=== PATIENT | male | born 1990 | race Caucasian/White ===

== ENCOUNTER 2017-04-09 18:59 | Emergency (ER) | payer MEDICAID, OTHER ==
[2017-04-09 19:06] VITALS: BP 140/90
[2017-04-09] MEDS ORDERED: TETANUS/DIPHTHERIA/PERTUSSIS 0.5 ML SYRINGE IM ONE ×2 (19:15→19:29)
[2017-04-09] MEDS ORDERED: BUFFERED LIDOCAINE 10 ML SYRINGE ONE (19:16)
--- NOTE | 2017-04-09 19:17 | ED Physician Documentation ---
PD HPI UPPER EXT INJURY - Stated complaint Stated Complaint: RT THUMB LAC - Chief complaint Chief Complaint: Laceration - History obtained from History obtained from: Patient - History of Present Illness Location: Other (He cut his right/dominant thumb 2 nights ago after work. He went to [facility] but the wait was too long and he was not seen. He has persistent pain from it and there is a piece of nail that is bothering the wound.) Review of Systems Constitutional: reports: Reviewed and negative Cardiac: reports: Reviewed and negative Respiratory: reports: Reviewed and negative PD PAST MEDICAL HISTORY - Past Medical History Past Medical History: Yes Psych: ADD/ADHD Musculoskeletal: Chronic back pain - Past Surgical History Past Surgical History: Yes HEENT: Tonsil/Adenoidectomy - Present Medications Home Medications: Ambulatory Orders Medication Instructions Recorded Confirmed buPROPion [Wellbutrin Xl] 150 mg PO DAILY 04/09/17 04/09/17 - Allergies Allergies/Adverse Reactions: Allergies Allergy/AdvReac Type Severity Reaction Status Date / Time nickel Allergy Rash Verified 04/09/17 19:05 zinc Allergy Rash Verified 04/09/17 19:05 - Social History Does the pt smoke?: Yes Smoking Status: Current every day smoker Does the pt drink ETOH?: No Does the pt have substance abuse?: Yes - Immunizations Immunizations are current?: No - POLST Patient has POLST: No PD ED PE NORMAL - Vitals Vital signs reviewed: Yes - General General: Alert and oriented X 3, No acute distress - Extremities Extremities: Other (On the tip of the right thumb, the ulnar side there is a 1/ 2 cm laceration that goes just through the ulnar side of the nailbed and there is a little sliver of the nail on the ulnar side that needs to be removed. The laceration is actually healing well and there is no evidence of infection.) - Neuro Neuro: Alert and oriented X 3, Normal speech - Psych Psych: Normal mood, Normal affect Results - Vitals Vitals: Vital Signs - 24 hr 04/09/17 19:02 Temperature 36.0 C L Heart Rate 99 Respiratory 16 Rate Blood Pressure 140/90 H O2 Saturation 98 Oxygen O2 Source Room air PD MEDICAL DECISION MAKING - ED course ED course: The laceration is healing well and is too old to close primarily. A digital block was done and the sliver of nail was removed and it was irrigated and he was dressed with Xeroform and tube gauze. Departure - Departure Disposition: 01 Home, Self Care Clinical Impression: Laceration Condition: Good Record reviewed to determine appropriate education?: Yes Instructions: ED Laceration Old Not Sutr Comments: Leave the current dressing on for 2 days, then you can take it off and wash it briefly with soap and water and keep a Band-Aid over it. Return if worse or if he develop signs of infection, especially redness, swelling, drainage, increased pain, fever. Your blood pressure was elevated today on check into the emergency department. This does not mean that you have hypertension, it is a common phenomenon to come to the emergency department and have elevated blood pressure. I recommend that you see your primary care physician within the week to have it rechecked when you are feeling better.
== END 2017-04-09 19:36 | disposition home or self-care (01) ==
LOC: ED 18:59
DX: S61.011A Laceration without foreign body of right thumb without damage to nail, initial encounter (principal); F17.200 Nicotine dependence, unspecified, uncomplicated; W26.0XXA Contact with knife, initial encounter; Y99.0 Civilian activity done for income or pay; R03.0 Elevated blood-pressure reading, without diagnosis of hypertension; Z23 Encounter for immunization
CPT/HCPCS: 64450; 90471; 99283

== ENCOUNTER 2017-08-14 21:58 | Emergency (ER) | payer MEDICAID, OTHER ==
--- NOTE | 2017-08-14 22:35 | ED Physician Documentation ---
PD HPI CHEST PAIN - Stated complaint Stated Complaint: R SIDE PAIN - Chief complaint Chief Complaint: Ext Problem - History obtained from History obtained from: Patient - History of Present Illness Timing - onset: How many days ago (2) Timing - details: Abrupt onset Pain level max: 10 Pain level now: 9 Quality: Pain Location: Right chest Radiation: Other (no radiation) Improved by: Rest Worsened by: Inspiration, Movement Associated symptoms: No: Shortness of air, Diaphoresis, Feeling faint / dizzy, Palpitations, Cough Similar symptoms before: Has not had sx before Recently seen: Not recently seen - Additional information Additional information: fell off a ladder 2 days ago, landed on right chest wall and has had increasing right anterior chest wall pain since then. Review of Systems Cardiac: reports: Chest pain / pressure Respiratory: denies: Dyspnea, Cough GI: denies: Abdominal Pain, Nausea, Vomiting Musculoskeletal: denies: Neck pain, Back pain PD PAST MEDICAL HISTORY - Past Medical History Past Medical History: Yes Endocrine/Autoimmune: None Psych: ADD/ADHD Musculoskeletal: Chronic back pain - Past Surgical History Past Surgical History: Yes HEENT: Tonsil/Adenoidectomy - Present Medications Home Medications: Ambulatory Orders Medication Instructions Recorded Confirmed No Known Home Medications [No 08/14/17 08/14/17 Known Home Medications] - Allergies Allergies/Adverse Reactions: Allergies Allergy/AdvReac Type Severity Reaction Status Date / Time nickel Allergy Rash Verified 08/14/17 22:10 zinc Allergy Rash Verified 08/14/17 22:10 - Social History Does the pt smoke?: Yes Smoking Status: Current every day smoker Does the pt drink ETOH?: No Does the pt have substance abuse?: Yes Substance Use and Type: Marijuana - Immunizations Immunizations are current?: Yes - POLST Patient has POLST: No PD ED PE NORMAL - Vitals Vital signs reviewed: Yes - General General: Alert and oriented X 3, No acute distress, Well developed/nourished - Cardiac Cardiac: RRR, No murmur - Respiratory Respiratory: No respiratory distress, Clear bilaterally - Abdomen Abdomen: Soft, Non tender - Free text exam Free text exam: right chest wall is TTP in region of 3rd-4th ribspace midclavicular line Results - Vitals Vitals: Oxygen O2 Source Room air - Rads (name of study) chest xray Radiology: Prelim report reviewed, See rad report PD MEDICAL DECISION MAKING - ED course Complexity details: reviewed results, re-evaluated patient, considered differential, d/w patient Departure - Departure Disposition: Home, Self Care Clinical Impression: Chest wall contusion Condition: Good Instructions: ED Contusion Chest Wall Discharge Date/Time: 08/14/17 23:34
--- NOTE | 2017-08-14 22:55 | XRAY Report ---
EXAM: CHEST RADIOGRAPHY EXAM DATE: 08/14/2017 10:49 PM. CLINICAL HISTORY: Right chest wall pain after fall. COMPARISON: 05/10/2014. TECHNIQUE: 2 views. FINDINGS: Lungs/Pleura: No alveolar consolidation or pleural effusion. No pneumothorax. Mediastinum: Heart and mediastinal contours are unremarkable. Other: None. IMPRESSION: No acute abnormality seen in the chest. [facility] Referring Provider Line: [phone] SITE ID: [id number]
--- NOTE | 2017-08-14 22:55 | XRAY Preliminary Report ---
Exam: XR CHEST 2 VIEW X-RAY IMPRESSION: No acute abnormality seen in the chest. [facility] SITE ID: [id number]
[2017-08-14 23:18] VITALS: BP 118/64
== END 2017-08-14 23:34 | disposition home or self-care (01) ==
LOC: ED 21:58
DX: S20.211A Contusion of right front wall of thorax, initial encounter (principal); W11.XXXA Fall on and from ladder, initial encounter; F17.200 Nicotine dependence, unspecified, uncomplicated
CPT/HCPCS: 71046; 99283

== ENCOUNTER 2017-09-06 13:06 | Emergency (ER) | payer MEDICAID, OTHER ==
[2017-09-06 13:43] VITALS: BP 130/78
== END 2017-09-06 16:15 | disposition left against medical advice (07) ==
LOC: ED 13:06
DX: Z53.21 Procedure and treatment not carried out due to patient leaving prior to being seen by health care provider (principal)
CPT/HCPCS: 81001; 81003; 87086; 87491; 87591; 99281

== ENCOUNTER 2017-12-08 14:11 | Emergency (ER) | payer MEDICAID ==
[2017-12-08 14:22] VITALS: BP 141/70
[2017-12-08] MEDS ORDERED: IBUPROFEN 800 MG TABLET PO STA (15:23)
--- NOTE | 2017-12-08 15:23 | ED Physician Documentation ---
History of Present Illness - Stated complaint Stated Complaint: LEFT LEG SWELLING - Chief complaint Chief Complaint: General - History obtained from History obtained from: Patient - History of Present Illness Timing: Yesterday Pain level max: 4 Pain level now: 3 Quality: back pain, walking Improved by: rest Worsened by: walking - Additonal information Additional information: Patient is a 27-year-old male who was sleeping in his car with his legs out of the window, hung over the door when he noticed a sunburn to the left marrero yesterday. States that the leg seems more swollen today. No pain. He also complains of low back pain for the past 6 months. Has not taken anything for this at home. No focal weakness or numbness. No tingling. No loss of bowel or bladder control. No fevers. No IV drug use Review of Systems Constitutional: denies: Fever, Chills Ears: denies: Ear pain Nose: denies: Rhinorrhea / runny nose, Congestion Throat: denies: Sore throat Respiratory: denies: Cough GI: denies: Nausea, Vomiting, Diarrhea Musculoskeletal: denies: Neck pain Neurologic: denies: Focal weakness, Numbness PD PAST MEDICAL HISTORY - Past Medical History Past Medical History: Yes Endocrine/Autoimmune: None Psych: ADD/ADHD Musculoskeletal: Chronic back pain - Past Surgical History Past Surgical History: Yes HEENT: Tonsil/Adenoidectomy - Present Medications Home Medications: Ambulatory Orders Medication Instructions Recorded Confirmed Ibuprofen [Motrin] 800 mg PO Q8H PRN #30 tablet 12/08/17 - Allergies Allergies/Adverse Reactions: Allergies Allergy/AdvReac Type Severity Reaction Status Date / Time nickel Allergy Rash Verified 12/08/17 14:22 zinc Allergy Rash Verified 12/08/17 14:22 - Social History Does the pt smoke?: Yes Smoking Status: Current every day smoker Does the pt drink ETOH?: No Does the pt have substance abuse?: Yes - Immunizations Immunizations are current?: Yes - POLST Patient has POLST: No PD ED PE NORMAL - Vitals Vital signs reviewed: Yes - General General: Alert and oriented X 3, No acute distress - HEENT HEENT: Moist mucous membranes - Neck Neck: Supple, no meningeal sign - Cardiac Cardiac: RRR, Strong equal pulses - Respiratory Respiratory: No respiratory distress, Clear bilaterally - Abdomen Abdomen: Soft, Non tender - Back Back: No spinal TTP, Other (No midline tenderness to palpation or percussion. No spasm.) - Derm Derm: Warm and dry - Extremities Extremities: No deformity, Other (normal bilateral lower extremity patellar and ankle jerk reflexes. Normal great toe extension bilaterally. Mild first-degree sunburn to the anterior aspect of the left marrero. No calf tenderness. No cord. Minimal edema) - Neuro Neuro: Alert and oriented X 3, No motor deficit, No sensory deficit, Other ( Normal gait) - Psych Psych: Normal mood, Normal affect Results - Vitals Vitals: Vital Signs - 24 hr 12/08/17 14:16 Temperature 36.8 C Heart Rate 78 Respiratory 18 Rate Blood Pressure 141/70 H O2 Saturation 97 Oxygen O2 Source Room air PD MEDICAL DECISION MAKING - ED course Complexity details: reviewed old records, considered differential (no cauda equina, no spinal epidural abscess, no fracture, no aortic dissection or evidence of aneursym rupture), d/w patient ED course: Patient is a 27-year-old male with a sunburn to the left lower extremity. No cellulitis. No evidence of DVT. No calf tenderness. Also has chronic low back pain and will prescribe Motrin for this. No neurological deficits. No cauda equina, epidural abscess. No new injury. Patient counseled regarding signs and symptoms for which I believe and urgent re-evaluation would be necessary. Patient with good understanding of and agreement to plan and is comfortable going home at this time This document was made in part using voice recognition software. While efforts are made to proofread this document, sound alike and grammatical errors may occur. - Sepsis Event Vital Signs: Vital Signs - 24 hr 12/08/17 14:16 Temperature 36.8 C Heart Rate 78 Respiratory 18 Rate Blood Pressure 141/70 H O2 Saturation 97 Oxygen O2 Source Room air Departure - Departure Disposition: Home, Self Care Clinical Impression: Sunburn Back pain Qualifiers: Back pain location: low back pain Chronicity: chronic Back pain laterality: bilateral Sciatica presence: without sciatica Qualified Code(s): M54.5 - Low back pain Condition: Good Instructions: ED Neck Back Pain General, ED Burn Sunburn Follow-Up: [facility] [Provider Group] [facility] [Provider Group] Prescriptions: Ibuprofen [Motrin] 800 mg PO Q8H PRN #30 tablet PRN Reason: PAIN &/OR FEVER Comments: Return if you worsen. This should improve over the next few days. Discharge Date/Time: 12/08/17 15:35
== END 2017-12-08 15:35 | disposition home or self-care (01) ==
LOC: ED 14:11
DX: L55.9 Sunburn, unspecified (principal); M54.5 Low back pain; G89.29 Other chronic pain; F17.200 Nicotine dependence, unspecified, uncomplicated
CPT/HCPCS: 99283; A9270

== ENCOUNTER 2018-02-23 01:15 | Emergency (ER) | payer MEDICAID ==
[2018-02-23 01:34] VITALS: BP 133/60
== END 2018-02-23 03:03 | disposition left against medical advice (07) ==
LOC: ED 01:15
DX: Z53.21 Procedure and treatment not carried out due to patient leaving prior to being seen by health care provider (principal)

== ENCOUNTER 2018-06-29 18:53 | Emergency (ER) | payer MEDICAID ==
--- NOTE | 2018-06-29 20:42 | ED Physician Documentation ---
PD HPI HEENT - Stated complaint Stated Complaint: FINGER LAC - Chief complaint Chief Complaint: General - History obtained from History obtained from: Patient - History of Present Illness Timing - onset: How many weeks ago (1) Timing - duration: Weeks (1) Timing - details: Gradual onset, Still present Location: Tooth Worsens: Temperatures Associated symptoms: Congestion Similar symptoms before: Diagnosis (broken tooth) Recently seen: Not recently seen - Additional information Additional information: 27-year-old homeless male has some lacerations to his fingertips which are old and appear to be healing he is wanting to get them cleaned. In addition he has a broken tooth on the right side that is giving him some problem with pain it is especially sensitive to cold and heat. The tooth is broken. Review of Systems Constitutional: denies: Fever Eyes: denies: Decreased vision Ears: denies: Ear pain Nose: reports: Congestion. denies: Rhinorrhea / runny nose Throat: reports: Dental pain / toothache. denies: Sore throat Respiratory: denies: Dyspnea, Cough GI: denies: Vomiting Skin: reports: Laceration (s) Musculoskeletal: denies: Neck pain, Back pain, Extremity pain Neurologic: denies: Generalized weakness, Focal weakness, Numbness PD PAST MEDICAL HISTORY - Past Medical History Past Medical History: Yes Cardiovascular: None Respiratory: None Neuro: None Endocrine/Autoimmune: None GI: None : None HEENT: None Psych: ADD/ADHD, Other Musculoskeletal: Chronic back pain Derm: None Other Past Medical History: ANGER ISSUE... - Past Surgical History Past Surgical History: Yes HEENT: Tonsil/Adenoidectomy - Present Medications Home Medications: Ambulatory Orders Medication Instructions Recorded Confirmed Ibuprofen [Motrin] 800 mg PO Q8H PRN #30 tablet 12/08/17 RX: Amoxicillin 875 mg PO BID #14 tablet 06/29/18 - Allergies Allergies/Adverse Reactions: Allergies Allergy/AdvReac Type Severity Reaction Status Date / Time nickel Allergy Rash Verified 06/29/18 19:25 zinc Allergy Rash Verified 06/29/18 19:25 - Social History Does the pt smoke?: Yes Smoking Status: Current every day smoker Does the pt drink ETOH?: No Does the pt have substance abuse?: Yes - Immunizations Immunizations are current?: No - POLST Patient has POLST: No PD ED PE NORMAL - Vitals Vital signs reviewed: Yes (hypertensive ) - General General: Alert and oriented X 3, No acute distress, Well developed/nourished - HEENT HEENT: Atraumatic, PERRL, EOMI, Other (There is a broken tooth on the right lower 2nd to the last molar on the buccal side. This is filled with CAVIT) - Neck Neck: Supple, no meningeal sign, No bony TTP - Cardiac Cardiac: RRR, No murmur - Respiratory Respiratory: No respiratory distress, Clear bilaterally - Back Back: No CVA TTP, No spinal TTP - Derm Derm: Normal color, Warm and dry, No rash - Extremities Extremities: No deformity, No edema, Other (There are healing superficial lacerations to the thumbs and index fingers and these are cleaned by the tech) - Neuro Neuro: Alert and oriented X 3, data processing equipment repairer 2-12 intact, No motor deficit, No sensory deficit, Normal speech Eye Opening: Spontaneous Motor: Obeys Commands Verbal: Oriented GCS Score: 15 - Psych Psych: Normal mood, Normal affect Results - Vitals Vitals: Vital Signs - 24 hr 06/29/18 06/29/18 06/29/18 19:21 20:55 20:56 Temperature 36.4 C L Heart Rate 95 95 Respiratory 16 18 17 Rate Blood Pressure 139/78 H 140/76 H O2 Saturation 99 98 06/29/18 21:00 Temperature Heart Rate Respiratory 17 Rate Blood Pressure O2 Saturation Oxygen O2 Source Room air PD MEDICAL DECISION MAKING - ED course Complexity details: considered differential, d/w patient ED course: Pleasant 27-year-old homeless male is grateful for care given. His tooth appears broken he is placed on amoxicillin and It is placed over the open area. His wounds are cleaned. Departure - Departure Disposition: 01 Home, Self Care Clinical Impression: Dental decay, Finger laceration Condition: Stable Instructions: ED Tooth Pain, ED Laceration Old Not Sutr Follow-Up: [facility] [Provider Group] Prescriptions: RX: Amoxicillin 875 mg PO BID #14 tablet Discharge Date/Time: 06/29/18 21:00
[2018-06-29 20:56] VITALS: BP 140/76
[2018-06-29] MEDS ORDERED: AMOXICILLIN 250 MG Prepack 6 PO SCH (22:00)
== END 2018-06-29 21:00 | disposition home or self-care (01) ==
LOC: ED 18:53
DX: S02.5XXA Fracture of tooth (traumatic), initial encounter for closed fracture (principal); K02.9 Dental caries, unspecified; S61.012A Laceration without foreign body of left thumb without damage to nail, initial encounter; S61.011A Laceration without foreign body of right thumb without damage to nail, initial encounter; S61.211A Laceration without foreign body of left index finger without damage to nail, initial encounter; S61.210A Laceration without foreign body of right index finger without damage to nail, initial encounter; X58.XXXA Exposure to other specified factors, initial encounter; R09.81 Nasal congestion; F17.200 Nicotine dependence, unspecified, uncomplicated; Z59.0 Homelessness
CPT/HCPCS: 99283

== ENCOUNTER 2018-07-23 20:45 | Emergency (ER) | payer MEDICAID ==
[2018-07-23] MEDS ORDERED: CETIRIZINE 10 MG TABLET PO STA (21:09)
[2018-07-23] MEDS ORDERED: BENZONATATE 100 MG CAPSULE PO STA (21:09)
[2018-07-23] MEDS ORDERED: ALBUTEROL NEB 2.5 MG/3 ML INH STA (21:09)
[2018-07-23] MEDS ORDERED: PSEUDOEPHEDRINE 30 MG TABLET PO STA (21:09)
--- NOTE | 2018-07-23 21:15 | ED Physician Documentation ---
PD HPI URI - Stated complaint Stated Complaint: SOA - Chief complaint Chief Complaint: Resp - History obtained from History obtained from: Patient - History of Present Illness Timing - onset: How many weeks ago (2) Timing duration: Weeks (2) Timing details: Abrupt onset Pain level max: 0 Pain level now: 0 Associated symptoms: Fever, Chills, Nasal congestion, Rhinorrhea, Dry cough, Dyspnea. No: Chest pain Contributing factors: Sick contact. No: Immunocompromised, Unimmunized Improves by: Rest Worsened by: Activity, Breathing Recently seen: Not recently seen Review of Systems Constitutional: reports: Fever, Chills Nose: reports: Rhinorrhea / runny nose, Congestion Respiratory: reports: Dyspnea, Cough, Wheezing GI: denies: Abdominal Pain, Nausea, Vomiting, Diarrhea Skin: denies: Rash Musculoskeletal: denies: Neck pain, Back pain Neurologic: denies: Headache PD PAST MEDICAL HISTORY - Past Medical History Cardiovascular: None Respiratory: None Neuro: None Endocrine/Autoimmune: None GI: None : None HEENT: None Psych: ADD/ADHD, Other Musculoskeletal: Chronic back pain Derm: None - Past Surgical History Past Surgical History: Yes HEENT: Tonsil/Adenoidectomy - Present Medications Home Medications: Ambulatory Orders Medication Instructions Recorded Confirmed Ibuprofen [Motrin] 800 mg PO Q8H PRN #30 tablet 12/08/17 Amoxicillin 875 mg PO BID #14 tablet 06/29/18 Albuterol Sulf [Ventolin Hfa 1 - 2 puffs INH Q4HR PRN #1 inhaler 07/23/18 Inhaler] Benzonatate [Tessalon Perle] 100 - 200 mg PO TID PRN #30 capsule 07/23/18 Cetirizine HCl/Pseudoephedrine 1 each PO BID PRN #30 tab.er.12h 07/23/18 [Zyrtec-D Tablet] - Allergies Allergies/Adverse Reactions: Allergies Allergy/AdvReac Type Severity Reaction Status Date / Time nickel Allergy Rash Verified 07/23/18 20:51 zinc Allergy Rash Verified 07/23/18 20:51 - Social History Does the pt smoke?: Yes Smoking Status: Current every day smoker Does the pt drink ETOH?: No Does the pt have substance abuse?: Yes Substance Use and Type: Marijuana - Immunizations Immunizations are current?: No - POLST Patient has POLST: No PD ED PE NORMAL - Vitals Vital signs reviewed: Yes - General General: Alert and oriented X 3, No acute distress - HEENT HEENT: Moist mucous membranes - Neck Neck: Supple, no meningeal sign - Cardiac Cardiac: RRR, No murmur, Strong equal pulses - Respiratory Respiratory: No respiratory distress, Other (Mild wheezing bilaterally) - Abdomen Abdomen: Soft, Non tender, Non distended - Derm Derm: No rash - Extremities Extremities: No edema - Neuro Neuro: Alert and oriented X 3 - Psych Psych: Normal mood, Normal affect Results - Vitals Vitals: Vital Signs - 24 hr 07/23/18 07/23/18 07/23/18 20:48 21:02 22:02 Temperature 36.2 C L 36.1 C L Heart Rate 97 84 Respiratory 18 18 12 Rate Blood Pressure 124/78 123/55 L O2 Saturation 98 93 07/23/18 22:06 Temperature Heart Rate 89 Respiratory 18 Rate Blood Pressure 134/64 H O2 Saturation 97 Oxygen O2 Source Room air - Labs Labs: Laboratory Tests 07/23/18 21:11 Influenza A (Rapid) Negative Influenza B (Rapid) Negative - Rads (name of study) cxr Radiology: Prelim report reviewed, EMP read contemporaneously, See rad report (No acute disease) PD MEDICAL DECISION MAKING - ED course Complexity details: reviewed results, re-evaluated patient, considered differential, d/w patient ED course: 27-year-old male with what appears to be a viral upper respiratory infection. Negative influenza. Negative chest x-ray. Feels better after medication and albuterol. Will continue supportive care and follow-up with his doctor. Patient counseled regarding signs and symptoms for which I believe and urgent re-evaluation would be necessary. Patient with good understanding of and agreement to plan and is comfortable going home at this time This document was made in part using voice recognition software. While efforts are made to proofread this document, sound alike and grammatical errors may occur. Departure - Departure Disposition: 01 Home, Self Care Clinical Impression: Viral URI Condition: Good Instructions: ED URI Viral Follow-Up: your,doctor in 1 week [Other] Prescriptions: Albuterol Sulf [Ventolin Hfa Inhaler] 1 - 2 puffs INH Q4HR PRN #1 inhaler PRN Reason: Shortness Of Air/Wheezing Benzonatate [Tessalon Perle] 100 - 200 mg PO TID PRN #30 capsule PRN Reason: Cough Cetirizine HCl/Pseudoephedrine [Zyrtec-D Tablet] 1 each PO BID PRN #30 tab.er.12h PRN Reason: nasal congestion Comments: Your flu swab is negative and your chest x-ray is clear. We will prescribe you decongestants and cough medication for home. Return if you worsen Discharge Date/Time: 07/23/18 22:13
--- NOTE | 2018-07-23 21:55 | XRAY Report ---
Reason: cough Procedure Date: 07/23/2018 Accession Number: [id number] / [id number] Procedure: XR - Chest 2 View X-Ray CPT Code: 23420 FULL RESULT: EXAM: CHEST RADIOGRAPHY EXAM DATE: 07/23/2018 09:29 PM. CLINICAL HISTORY: Cough. COMPARISON: CHEST 2 VIEW 08/14/2017 10:37 PM. TECHNIQUE: 2 views. FINDINGS: Lungs/Pleura: No focal opacities evident. No pleural effusion. No pneumothorax. Normal volumes. Mediastinum: Heart and mediastinal contours are unremarkable. Other: None. IMPRESSION: Normal 2-view chest radiography. [facility]
[2018-07-23 22:07] VITALS: BP 134/64
== END 2018-07-23 22:13 | disposition home or self-care (01) ==
LOC: ED 20:45
DX: J06.9 Acute upper respiratory infection, unspecified (principal); B97.89 Other viral agents as the cause of diseases classified elsewhere
CPT/HCPCS: 71046; 87275; 87276; 94640; 94664; 99283; A9270

== ENCOUNTER 2018-11-18 00:42 | Outpatient (CLI) | payer MEDICAID | END 2018-11-18 00:43 | disposition critical access hospital (66) | LOC: EMS 00:42 | PROVIDERS: ATTEND Surgery | DX: R51 Headache (principal); M54.2 Cervicalgia; M79.603 Pain in arm, unspecified; M79.606 Pain in leg, unspecified; Y09 Assault by unspecified means | CPT/HCPCS: A0425; A0429 ==

== ENCOUNTER 2018-11-18 00:57 | Emergency (ER) | payer OTHER, MEDICAID ==
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
[2018-11-18 01:15] VITALS: BP 120/71
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
== END 2018-11-18 02:19 | disposition home or self-care (01) ==
LOC: EDUNIT# → ED 00:57
DX: S09.90XA Unspecified injury of head, initial encounter (principal); S00.31XA Abrasion of nose, initial encounter; S00.531A Contusion of lip, initial encounter; Y04.2XXA Assault by strike against or bumped into by another person, initial encounter; F90.9 Attention-deficit hyperactivity disorder, unspecified type; F17.200 Nicotine dependence, unspecified, uncomplicated
CPT/HCPCS: 70450; 70486; 99282; 99283

== ENCOUNTER 2018-12-29 08:00 | Outpatient (CLI) | payer MEDICAID ==
[2018-12-29 11:09] LABS: MUDS CUTOFF CONCENTRATIONS CUTOFF CONC BELOW:
[2018-12-29 18:38] LABS: BASOPHILS % (AUTO) 0.3 %; EOSINOPHILS # (AUTO) 0.3 10^3/uL (0.0-0.7); EOSINOPHILS % (AUTO) 3.8 %; LYMPHOCYTES % (AUTO) 25.7 %; MEAN CORPUSCULAR HEMOGLOBIN 30.2 pg (27.0-31.0); MEAN CORPUSCULAR HGB CONC 31.3 g/dL (32.0-36.0); MEAN CORPUSCULAR VOLUME 96.5 fL (80.0-94.0); MEAN PLATELET VOLUME 11.3 fL (7.4-11.4); MONOCYTES # (AUTO) 0.5 10^3/uL (0.0-1.0); MONOCYTES % (AUTO) 5.9 %; NEUTROPHILS # (AUTO) 4.9 10^3/uL (1.5-6.6); NEUTROPHILS % (AUTO) 64.2 %; PLT - PLATELET COUNT 306 10^3/uL (130-450); RED BLOOD COUNT 4.63 10^6/uL (4.70-6.10); RED CELL DISTRIBUTION WIDTH 12.5 % (12.0-15.0); WHITE BLOOD COUNT 7.6 x10^3/uL (4.8-10.8)
[2018-12-29 18:53] LABS: AMPHETAMINE SCREEN,URINE POSITIVE (NEGATIVE); BENZODIAZEPINES SCREEN, URINE NEGATIVE (NEGATIVE); COCAINE SCREEN URINE NEGATIVE (NEGATIVE); METHADONE SCREEN, URINE NEGATIVE (NEGATIVE); METHAMPHETAMINES SCREEN, URINE POSITIVE (NEGATIVE); OPIATE SCREEN, URINE NEGATIVE (NEGATIVE); OXYCODONE SCREEN, URINE NEGATIVE (NEGATIVE); PROPOXYPHENE SCREEN, URINE NEGATIVE (NEGATIVE); TRICYCLIC ANTIDEPRESSANT,URINE NEGATIVE (NEGATIVE)
[2018-12-29 19:06] LABS: ALBUMIN 4.2 g/dL (3.2-5.5); ALBUMIN/GLOBULIN RATIO 1.4 (1.0-2.2); BILIRUBIN,TOTAL 0.5 mg/dL (0.2-1.0); CALCIUM 9.2 mg/dL (8.5-10.3); CREATININE 0.8 mg/dL (0.6-1.2); TOTAL PROTEIN 7.2 g/dL (6.7-8.2)
[2018-12-30 10:41] LABS: HIV AG/AB 4TH GEN NON-REACTIVE (NON-REACTIVE)
[2018-12-30 15:26] LABS: HEPATITIS C ANTIBODY NON-REACTIVE (NON-REACTIVE)
== END 2018-12-29 23:59 | disposition home or self-care (01) ==
LOC: LAB.WCP 08:00
PROVIDERS: ATTEND Family Medicine
DX: F31.9 Bipolar disorder, unspecified (principal); W46.0XXA Contact with hypodermic needle, initial encounter; Z87.898 Personal history of other specified conditions
CPT/HCPCS: 36415; 80053; 80306; 84443; 85025; 86803; 87389

== ENCOUNTER 2019-04-10 16:39 | Emergency (ER) | payer MEDICAID, OTHER ==
[2019-04-10 16:46] VITALS: BP 127/76
--- NOTE | 2019-04-10 17:04 | ED Physician Documentation ---
PD HPI LOWER EXT INJURY - Stated complaint Stated Complaint: RT BIG TOE - PREVIOUS INJURY FOLLOW UP - Chief complaint Chief Complaint: Ext Problem - History obtained from History obtained from: Patient - History of Present Illness PD HPI LOW EXT INJURY LOCATION: Right, Toe Type of injury: Blunt / blow (He states he kicked a normal drum that was rolling toward him 2 weeks ago and had pain in the right big toe with swelling and felt deformed. The swelling is gone down slowly and he has had increasing range of motion but is still feels stiff. He wants to ensure its healing okay. He had had a small abrasion on the dorsum of the toe which has not had any drainage nor increased redness.) Timing - onset: How many weeks ago (2) Worsened by: Moving, Palpating Associated symptoms: Swelling. No: Weakness, Numbness Review of Systems Neurologic: denies: Focal weakness, Numbness PD PAST MEDICAL HISTORY - Past Medical History Cardiovascular: None Respiratory: None Neuro: None Endocrine/Autoimmune: None GI: None : None HEENT: None Psych: ADD/ADHD, Other Musculoskeletal: Chronic back pain Derm: None - Past Surgical History Past Surgical History: Yes HEENT: Tonsil/Adenoidectomy - Present Medications Home Medications: Ambulatory Orders Medication Instructions Recorded Confirmed Ibuprofen 600 mg PO TID PRN #25 tablet 04/10/19 - Allergies Allergies/Adverse Reactions: Allergies Allergy/AdvReac Type Severity Reaction Status Date / Time nickel Allergy Rash Verified 11/18/18 01:14 zinc Allergy Rash Verified 11/18/18 01:14 - Social History Does the pt smoke?: Yes Smoking Status: Current every day smoker Does the pt drink ETOH?: No Does the pt have substance abuse?: Yes - Immunizations Immunizations are current?: No - POLST Patient has POLST: No PD ED PE NORMAL - Vitals Vital signs reviewed: Yes - General General: Alert and oriented X 3, No acute distress, Well developed/nourished - Derm Derm: Normal color, Warm and dry - Extremities Extremities: Other (right great toe with some residual bruising clearing still. Superficial redness/abrasion dorsum of base of toe in linear shape, presume related to prior tape at the area. No signs of infection to it. The IP joint is tender, with some swelling, but has good ROM flex and ext.) - Neuro Neuro: No motor deficit, No sensory deficit, Other (good color and cap refill in tip of toe. ) Results - Vitals Vitals: Vital Signs - 24 hr 04/10/19 16:42 Temperature 36.7 C Heart Rate 77 Respiratory 16 Rate Blood Pressure 127/76 O2 Saturation 100 Oxygen O2 Source Room air - Rads (name of study) righ great toe Radiology: Prelim report reviewed (satisfactory position of distal phalanx articular fracture. ), See rad report PD MEDICAL DECISION MAKING - ED course Complexity details: considered differential (recent fracture 2 weeks ago, with good ROM and sensation, though mill tender warm up. Appears healing okya. Encouraged to f/u ortho. ), d/w patient Departure - Departure Disposition: 01 Home, Self Care Clinical Impression: Fracture of great toe Qualifiers: Encounter type: initial encounter Fracture type: closed Phalanx: distal Fracture alignment: nondisplaced Laterality: right Qualified Code(s): S92.424A - Nondisplaced fracture of distal phalanx of right great toe, initial encounter for closed fracture Condition: Stable Record reviewed to determine appropriate education?: Yes Instructions: ED Fx Toe Closed Follow-Up: [facility] [Provider Group] Prescriptions: Ibuprofen 600 mg PO TID PRN #25 tablet PRN Reason: Pain Comments: Your x-ray shows a healing fracture of the great toe. It does appear in stable position. I would anticipate continued improvement as the swelling goes down even further. Anti-inflammatories such as ibuprofen 3 times a day. Add Tylenol if needed for pains. Use the firm soled shoe to help reduce movement at the joint and that should help the swelling as well. Follow-up with orthopedics in a week or 2 to ensure still healing well., Call for an appointment. Discharge Date/Time: 04/10/19 17:46
--- NOTE | 2019-04-10 17:30 | XRAY Report ---
Reason: R Procedure Date: 04/10/2019 Accession Number: [id number] / [id number] Procedure: XR - Toe(s) RT CPT Code: FULL RESULT: EXAM: RIGHT TOE RADIOGRAPHY EXAM DATE: 04/10/2019 05:14 PM. CLINICAL HISTORY: Prior fracture with increasing pain and swelling COMPARISON: O XR FOOT 3+ VIEW COMPLETE RIGHT 03/23/2019 9:00 PM. TECHNIQUE: 3 views. FINDINGS: Bones: Unchanged appearance and alignment of the minimally displaced intra-articular fracture of the base of the first distal phalanx. No other fracture lines are seen. Joints: No subluxations. Soft Tissues: Soft tissue swelling of the first digit. IMPRESSION: 1. Stable appearance and alignment of the intra-articular fracture of the base of the first distal phalanx with surrounding soft tissue swelling. RADIA
[2019-04-10] MEDS ORDERED: IBUPROFEN 600 MG TABLET PO STA (17:36)
== END 2019-04-10 17:46 | disposition home or self-care (01) ==
LOC: ED 16:39
DX: S92.424A Nondisplaced fracture of distal phalanx of right great toe, initial encounter for closed fracture (principal); W22.8XXA Striking against or struck by other objects, initial encounter; F17.200 Nicotine dependence, unspecified, uncomplicated
CPT/HCPCS: 73660; 99283

== ENCOUNTER 2019-04-29 21:55 | Emergency (ER) | payer MEDICAID ==
[2019-04-29 22:08] VITALS: BP 138/64
[2019-04-29] MEDS ORDERED: AMOX/CLAV 875 MG/125 MG TABLET PO STA (22:11)
[2019-04-29] MEDS ORDERED: PSEUDOEPHEDRINE 30 MG TABLET PO STA (22:12)
--- NOTE | 2019-04-29 22:15 | ED Physician Documentation ---
PD HPI URI - Stated complaint Stated Complaint: CONGESTION,DEHYDRATION - Chief complaint Chief Complaint: Heent - History obtained from History obtained from: Patient (28-year-old gentleman who is homeless has 3 weeks of a productive cough, right greater than left ear pain, and sinus congestion. Some subjective fevers and chills.) Review of Systems Constitutional: reports: Chills, Fatigue Nose: reports: Rhinorrhea / runny nose, Congestion, Sinus pressure / pain Throat: reports: Sore throat Respiratory: reports: Cough. denies: Wheezing PD PAST MEDICAL HISTORY - Past Medical History Cardiovascular: None Respiratory: None Neuro: None Endocrine/Autoimmune: None GI: None : None HEENT: None Psych: ADD/ADHD, Other Musculoskeletal: Chronic back pain Derm: None - Past Surgical History Past Surgical History: Yes HEENT: Tonsil/Adenoidectomy - Present Medications Home Medications: Ambulatory Orders Medication Instructions Recorded Confirmed Ibuprofen 600 mg PO TID PRN #25 tablet 04/10/19 Amox/Clav 875/125 [Augmentin] 1 each PO Q12H #20 tablet 04/29/19 Guaifenesin/Pseudoephedrne HCl 1 each PO BID PRN #20 tab.er.12h 04/29/19 [Mucinex D ER 600-60 mg Tablet] - Allergies Allergies/Adverse Reactions: Allergies Allergy/AdvReac Type Severity Reaction Status Date / Time nickel Allergy Rash Verified 04/29/19 22:08 zinc Allergy Rash Verified 04/29/19 22:08 - Social History Does the pt smoke?: Yes Smoking Status: Current every day smoker Does the pt drink ETOH?: No Does the pt have substance abuse?: Yes - Immunizations Immunizations are current?: No - POLST Patient has POLST: No PD ED PE NORMAL - Vitals Vital signs reviewed: Yes - General General: Alert and oriented X 3, No acute distress - HEENT HEENT: Other (Moderate right otitis media with sclerosis of both TMs, oropharynx normal.) - Neck Neck: Supple, no meningeal sign, No bony TTP - Cardiac Cardiac: RRR, No murmur - Respiratory Respiratory: No respiratory distress, Clear bilaterally - Abdomen Abdomen: Non tender - Neuro Neuro: Alert and oriented X 3, Normal speech - Psych Psych: Normal mood, Normal affect Results - Vitals Vitals: Vital Signs - 24 hr 11/07/19 22:04 Temperature 36.3 C L Heart Rate 99 Respiratory 17 Rate Blood Pressure 138/64 H O2 Saturation 98 Oxygen O2 Source Room air Departure - Departure Disposition: 01 Home, Self Care Clinical Impression: ROM (right otitis media) Qualifiers: Otitis media type: suppurative Chronicity: acute Recurrence: recurrent Spontaneous tympanic membrane rupture: without spontaneous rupture Qualified Code(s): H66.004 - Acute suppurative otitis media without spontaneous rupture of ear drum, recurrent, right ear Condition: Good Record reviewed to determine appropriate education?: Yes Instructions: ED Otitis Media Acute Adult, ED Smoking Cessation Prescriptions: Amox/Clav 875/125 [Augmentin] 1 each PO Q12H #20 tablet Guaifenesin/Pseudoephedrne HCl [Mucinex D ER 600-60 mg Tablet] 1 each PO BID PRN #20 tab.er.12h PRN Reason: congestion Comments: Call your doctor to arrange a follow-up appointment, make the next available appointment. In the interim, return anytime if worse or if new symptoms devel op.
== END 2019-04-29 22:23 | disposition home or self-care (01) ==
LOC: ED 21:55
DX: H66.004 Acute suppurative otitis media without spontaneous rupture of ear drum, recurrent, right ear (principal); H73.893 Other specified disorders of tympanic membrane, bilateral; Z59.0 Homelessness; F17.200 Nicotine dependence, unspecified, uncomplicated
CPT/HCPCS: 99282; 99283; A9270

== ENCOUNTER 2019-09-05 21:19 | Emergency (ER) | payer MEDICAID ==
[2019-09-05 21:25] VITALS: BP 151/76
--- NOTE | 2019-09-05 21:34 | ED Physician Documentation ---
PD HPI SKIN - Stated complaint Stated Complaint: RT ARM WOUND - Chief complaint Chief Complaint: Wound - History obtained from History obtained from: Patient (Patient is a 28-year-old male who present with a chief complaint of possible skin infection to his right upper extremity. Patient reports that he thinks he might possibly have a cellulitis.He reports his symptoms started approximately 5 to 7 days ago he denies any fevers denies any headache or neck pain or chest pain.Patient reports that he is left-hand dominant.The patient is refusing to answer any other questions.) Review of Systems Constitutional: reports: Reviewed and negative Eyes: reports: Reviewed and negative Ears: reports: Reviewed and negative Nose: reports: Reviewed and negative Throat: reports: Reviewed and negative Cardiac: reports: Reviewed and negative Respiratory: reports: Reviewed and negative GI: reports: Reviewed and negative : reports: Reviewed and negative Skin: reports: Rash Musculoskeletal: reports: Reviewed and negative Neurologic: reports: Reviewed and negative Psychiatric: reports: Reviewed and negative Endocrine: reports: Reviewed and negative Immunocompromised: reports: Reviewed and negative PD PAST MEDICAL HISTORY - Past Medical History Cardiovascular: None Respiratory: None Neuro: None Endocrine/Autoimmune: None GI: None : None HEENT: None Psych: ADD/ADHD, Other Musculoskeletal: Chronic back pain Derm: None - Past Surgical History Past Surgical History: Yes HEENT: Tonsil/Adenoidectomy - Present Medications Home Medications: Ambulatory Orders Medication Instructions Recorded Confirmed Ibuprofen 600 mg PO TID PRN #25 tablet 04/10/19 Amox/Clav 875/125 [Augmentin] 1 each PO Q12H #20 tablet 04/29/19 Guaifenesin/Pseudoephedrne HCl 1 each PO BID PRN #20 tab.er.12h 04/29/19 [Mucinex D ER 600-60 mg Tablet] Cephalexin [Keflex] 500 mg PO QID 10 Days #40 capsule 09/05/19 - Allergies Allergies/Adverse Reactions: Allergies Allergy/AdvReac Type Severity Reaction Status Date / Time nickel Allergy Rash Verified 09/05/19 21:21 zinc Allergy Rash Verified 09/05/19 21:21 - Social History Does the pt smoke?: Yes Smoking Status: Current every day smoker Does the pt drink ETOH?: No Does the pt have substance abuse?: Yes - Immunizations Immunizations are current?: No - POLST Patient has POLST: No PD ED PE NORMAL - Vitals Vital signs reviewed: Yes - General General: Alert and oriented X 3, No acute distress, Well developed/nourished - HEENT HEENT: Atraumatic, PERRL, Moist mucous membranes, Pharynx benign - Neck Neck: Supple, no meningeal sign, No adenopathy - Cardiac Cardiac: RRR (on exam patient heart rate is 90 and regular, no murmurs appreciated.), No murmur, Strong equal pulses - Respiratory Respiratory: No respiratory distress, Clear bilaterally - Abdomen Abdomen: Normal bowel sounds, Soft, Non tender, Non distended - Derm Derm: Warm and dry, Other (There is a 1 x 1 cm of Erythema to the right upper extremity.Itch just proximal to the antecubital fossa to the medial aspect of the biceps. There is no fluctuance or induration no streaking no epitrochlear or axillary lymphadenopathy there is no crepitus its mildly warm not tender to palpation.) - Extremities Extremities: No deformity - Neuro Neuro: Alert and oriented X 3 - Psych Psych: Normal mood, Normal affect Results - Vitals Vitals: Vital Signs - 24 hr 09/05/19 21:22 Temperature 36.5 C Heart Rate 126 H Respiratory 14 Rate Blood Pressure 151/76 H O2 Saturation 98 Oxygen O2 Source Room air PD MEDICAL DECISION MAKING - ED course Complexity details: considered differential (Presently looks like cellulitis it could possibly evolve into an abscess. However there is no fluctuance or induration.We will treat empirically for cellulitis and start with Keflex.) Departure - Departure Disposition: 01 Home, Self Care Clinical Impression: Cellulitis Qualifiers: Site of cellulitis: unspecified site Qualified Code(s): L03.90 - Cellulitis, unspecified Condition: Stable Instructions: ED Infec Skin Cellulitis Follow-Up: your, doctor [Other] - Tomorrow Prescriptions: Cephalexin [Keflex] 500 mg PO QID 10 Days #40 capsule
[2019-09-05] MEDS ORDERED: cephALEXin 250 MG CAPSULE PO STA (21:44)
== END 2019-09-05 21:57 | disposition home or self-care (01) ==
LOC: ED 21:19
DX: L03.113 Cellulitis of right upper limb (principal); F17.210 Nicotine dependence, cigarettes, uncomplicated
CPT/HCPCS: 99282; 99283; A9270

== ENCOUNTER 2019-12-03 17:56 | Emergency (ER) | payer MEDICAID ==
[2019-12-03 18:05] VITALS: BP 148/68
[2019-12-03] MEDS ORDERED: IBUPROFEN 800 MG TABLET PO STA (18:09)
--- NOTE | 2019-12-03 18:10 | ED Physician Documentation ---
PD HPI UPPER EXT INJURY - Stated complaint Stated Complaint: RT ARM INJURY - Chief complaint Chief Complaint: Ext Problem - History obtained from History obtained from: Patient (About 2 weeks ago he fell while skateboarding and injured his right wrist and then got worse last night after sleeping on it wrong. Continues to be swollen. No other injuries.) Review of Systems Constitutional: denies: Fever, Chills Nose: denies: Rhinorrhea / runny nose, Congestion Throat: denies: Sore throat Cardiac: denies: Chest pain / pressure, Palpitations PD PAST MEDICAL HISTORY - Past Medical History Past Medical History: Yes Cardiovascular: None Respiratory: None Neuro: None Endocrine/Autoimmune: None GI: None : None HEENT: None Psych: ADD/ADHD, Other Musculoskeletal: Chronic back pain Derm: None - Past Surgical History Past Surgical History: Yes HEENT: Tonsil/Adenoidectomy - Present Medications Home Medications: Ambulatory Orders Medication Instructions Recorded Confirmed Ibuprofen 600 mg PO TID PRN #25 tablet 04/10/19 Amox/Clav 875/125 [Augmentin] 1 each PO Q12H #20 tablet 04/29/19 Guaifenesin/Pseudoephedrne HCl 1 each PO BID PRN #20 tab.er.12h 04/29/19 [Mucinex D ER 600-60 mg Tablet] Cephalexin [Keflex] 500 mg PO QID 10 Days #40 capsule 09/05/19 Ibuprofen [Motrin] 800 mg PO Q8H PRN #30 tablet 12/03/19 - Allergies Allergies/Adverse Reactions: Allergies Allergy/AdvReac Type Severity Reaction Status Date / Time nickel Allergy Rash Verified 09/05/19 21:21 zinc Allergy Rash Verified 09/05/19 21:21 - Social History Does the pt smoke?: Yes Smoking Status: Current every day smoker Does the pt drink ETOH?: No Does the pt have substance abuse?: Yes - Immunizations Immunizations are current?: No - POLST Patient has POLST: No PD ED PE NORMAL - Vitals Vital signs reviewed: Yes - General General: Alert and oriented X 3, No acute distress - Extremities Extremities: Other (Tender over the dorsal distal wrist, no snuffbox tenderness, it is swollen the wrist. Has difficulty with inversion and eversion as well as flexion extension. Normal sensation throughout the hand.) - Neuro Neuro: Alert and oriented X 3, Normal speech Results - Vitals Vitals: Vital Signs - 24 hr 12/03/19 18:01 Temperature 37.2 C Heart Rate 97 Respiratory 18 Rate Blood Pressure 148/68 H O2 Saturation 100 Oxygen O2 Source Room air - Rads (name of study) 4v XR R wrist Radiology: EMP read contemporaneously (NAD) Departure - Departure Disposition: Home, Self Care Clinical Impression: Sprain of wrist, right Qualifiers: Encounter type: initial encounter Qualified Code(s): S63.501A - Unspecified sprain of right wrist, initial encounter Condition: Good Record reviewed to determine appropriate education?: Yes Instructions: ED Splint Care Velcro Prescriptions: Ibuprofen [Motrin] 800 mg PO Q8H PRN #30 tablet PRN Reason: PAIN &/OR FEVER Comments: X-rays today were normal, follow-up with your doctor in a week if not improving, return for new or worsening symptoms. Wear the splint as needed for comfort, ibuprofen as well. Discharge Date/Time: 12/03/19 18:33
--- NOTE | 2019-12-03 18:25 | XRAY Report ---
PROCEDURE: Wrist 4 View RT INDICATIONS: Trauma TECHNIQUE: 4 views of the wrist were acquired. COMPARISON: None FINDINGS: Bones: No fractures or dislocations. No suspicious bony lesions. Scaphoid view: Negative Soft tissues: No suspicious soft tissue calcifications. IMPRESSION: No acute fracture. No osseous lesion. If symptoms and/or clinical suspicion for pathology continue, f urther assessment with repeat plain films, or advanced imaging (e.g., CT, MRI, or bone scan) is recom mended for further assessment. Reviewed by: Autumn Adams MD on 12/03/2019 6:24 PM PDT Approved by: Autumn Adams MD on 12/03/2019 6:24 PM PDT Station ID: [id number]
== END 2019-12-03 18:33 | disposition home or self-care (01) ==
LOC: ED 17:56
DX: S63.501A Unspecified sprain of right wrist, initial encounter (principal); V00.131A Fall from skateboard, initial encounter; Y93.51 Activity, roller skating (inline) and skateboarding; F17.200 Nicotine dependence, unspecified, uncomplicated
CPT/HCPCS: 73110; 99283; A9270

== ENCOUNTER 2019-12-05 13:51 | Emergency (ER) | payer MEDICAID ==
[2019-12-05 13:59] VITALS: BP 127/65
== END 2019-12-05 14:08 | disposition left against medical advice (07) ==
LOC: ED 13:51
DX: Z53.21 Procedure and treatment not carried out due to patient leaving prior to being seen by health care provider (principal)

== ENCOUNTER 2020-01-11 15:05 | Emergency (ER) | payer MEDICAID ==
[2020-01-11 15:17] VITALS: BP 140/81
== END 2020-01-11 15:50 | disposition left against medical advice (07) ==
LOC: ED 15:05
DX: Z53.21 Procedure and treatment not carried out due to patient leaving prior to being seen by health care provider (principal)

== ENCOUNTER 2020-01-31 10:00 | Outpatient (CLI) | payer MEDICAID | END 2020-01-31 10:01 | disposition EMS.NT | LOC: EMS 10:00 | PROVIDERS: ATTEND Surgery | DX: S91.112A Laceration without foreign body of left great toe without damage to nail, initial encounter (principal); W45.8XXA Other foreign body or object entering through skin, initial encounter; Y92.481 Parking lot as the place of occurrence of the external cause ==

== ENCOUNTER 2020-05-31 13:45 | Emergency (ER) | payer MEDICAID | END 2020-05-31 13:53 | disposition left against medical advice (07) | LOC: ED 13:45 | DX: Z53.21 Procedure and treatment not carried out due to patient leaving prior to being seen by health care provider (principal) ==

== ENCOUNTER 2020-06-19 11:58 | Emergency (ER) | payer MEDICAID ==
[2020-06-19] MEDS ORDERED: PROMETHAZINE 25 MG/1 ML VIAL IM STA (12:47)
[2020-06-19] MEDS ORDERED: LIDOCAINE VISCOUS 2% 15 ML UDC MM STA (12:50)
[2020-06-19] MEDS ORDERED: MAG HYDROX/AL HYDROX/SIMETH 30 ML UDC PO STA (12:50)
--- NOTE | 2020-06-19 12:50 | ED Physician Documentation ---
History of Present Illness - Stated complaint Stated Complaint: SOA - Chief complaint Chief Complaint: Resp - History obtained from History obtained from: Patient - History of Present Illness Timing: Today Pain level max: 0 Pain level now: 0 - Additonal information Additional information: 29 year old male states that he used methamphetamines and heroin yesterday. States vomiting today. No fever. No chills. Mild epigastric pain. Not suicidal or homicidal. States he thinks he overdosed yesterday causing the vomiting today. No diarrhea. No constipation. No chest pain. States occasionally feels short of air when he vomits. Not on meds currently. states he would like to quit using methamphetamines and heroin. Review of Systems Constitutional: denies: Fever, Chills Ears: denies: Ear pain Nose: denies: Rhinorrhea / runny nose, Congestion, Sinus pressure / pain, Foreign Body Throat: denies: Sore throat Cardiac: denies: Chest pain / pressure Respiratory: denies: Cough GI: reports: Nausea, Vomiting. denies: Diarrhea Skin: denies: Rash Musculoskeletal: denies: Neck pain, Back pain Neurologic: denies: Focal weakness, Numbness, Headache PD PAST MEDICAL HISTORY - Past Medical History Cardiovascular: None Respiratory: None Neuro: None Endocrine/Autoimmune: None GI: None : None HEENT: None Psych: Bipolar disorder, ADD/ADHD, Other Musculoskeletal: Chronic back pain Derm: None - Past Surgical History Past Surgical History: Yes HEENT: Tonsil/Adenoidectomy - Present Medications Home Medications: Ambulatory Orders Medication Instructions Recorded Confirmed Ondansetron Odt [Zofran] 4 mg TL Q6H PRN #5 tablet 06/19/20 - Allergies Allergies/Adverse Reactions: Allergies Allergy/AdvReac Type Severity Reaction Status Date / Time nickel Allergy Rash Verified 06/19/20 12:04 zinc Allergy Rash Verified 06/19/20 12:04 - Social History Does the pt smoke?: Yes Smoking Status: Current every day smoker Does the pt drink ETOH?: No ETOH Use: Liquor Does the pt have substance abuse?: Yes Substance Use and Type: Marijuana, Meth, Heroin - Immunizations Immunizations are current?: No - POLST Patient has POLST: No PD ED PE NORMAL - Vitals Vital signs reviewed: Yes - General General: Alert and oriented X 3, No acute distress, Well developed/nourished - HEENT HEENT: PERRL, Ears normal, Moist mucous membranes, Pharynx benign - Neck Neck: Supple, no meningeal sign, No adenopathy - Cardiac Cardiac: RRR - Respiratory Respiratory: No respiratory distress, Clear bilaterally - Abdomen Abdomen: Soft, Non distended, Other (mild TTP epigastric without peritoneal signs.) - Back Back: No spinal TTP - Derm Derm: Warm and dry - Extremities Extremities: No edema - Neuro Neuro: Alert and oriented X 3, costume shop manager 2-12 intact, No motor deficit, No sensory deficit, Normal speech - Psych Psych: Normal mood, Normal affect Results - Vitals Vitals: Vital Signs - 24 hr 06/19/20 06/19/20 06/19/20 12:05 12:49 13:50 Temperature 36.6 C Heart Rate 83 82 63 Respiratory 20 12 21 Rate Blood Pressure 171/74 H 140/77 H 144/90 H O2 Saturation 100 98 99 06/19/20 06/19/20 13:53 14:00 Temperature 36.8 C Heart Rate 74 Respiratory 22 Rate Blood Pressure 158/72 H O2 Saturation 97 Oxygen O2 Source Room air - Labs Labs: Laboratory Tests 06/19/20 06/19/20 06/19/20 13:01 13:01 13:01 WBC 11.0 H RBC 5.00 Hgb 15.3 Hct 46.3 MCV 92.6 MCH 30.6 MCHC 33.0 RDW 12.5 Plt Count 342 MPV 10.3 Neut # (Auto) 8.7 H Lymph # (Auto) 1.7 [place] # (Auto) 0.4 Eos # (Auto) 0.2 Baso # (Auto) 0.0 Absolute Nucleated RBC 0.00 Nucleated RBC % 0.0 Sodium 140 Potassium 3.5 Chloride 100 L Carbon Dioxide 30 Anion Gap 10.0 BUN 12 Creatinine 0.8 Estimated GFR (MDRD) 113 Glucose 100 Calcium 9.1 Total Bilirubin 0.6 AST 18 ALT 26 Alkaline Phosphatase 75 Total Protein 7.7 Albumin 4.4 Globulin 3.3 Albumin/Globulin Ratio 1.3 Lipase 37 Urine Color Urine Clarity Urine pH Ur Specific [place] Urine Protein Urine Glucose (UA) Urine Ketones Urine Occult Blood Urine Nitrite Urine Bilirubin Urine Urobilinogen Ur Leukocyte Esterase Urine RBC Urine WBC Ur Squamous Epith Cells Amorphous Sediment Urine Bacteria Ur Microscopic Review Urine Culture Comments Nasal Adenovirus (PCR) Nasal B. parapertussis DNA (PCR) Nasal Coronavir 229E PCR Nasal Coronavir HKU1 PCR Nasal Coronavir NL63 PCR Nasal Coronavir OC43 PCR Nasal Enterovir/Rhinovir PCR Nasal Influenza B PCR Nasal Influenza A PCR Nasal Parainfluen 1 PCR Nasal Parainfluen 2 PCR Nasal Parainfluen 3 PCR Nasal Parainfluen 4 PCR Nasal RSV (PCR) Nasal B.pertussis DNA PCR Nasal C.pneumoniae (PCR) Sanjeev Human Metapneumo PCR Nasal M.pneumoniae (PCR) Nasal SARS-CoV-2 (PCR) Salicylates < 6.0 Urine Opiates Screen Ur Oxycodone Screen Urine Methadone Screen Ur Propoxyphene Screen Acetaminophen < 10 L Ur Barbiturates Screen Ur Tricyclics Screen Ur Phencyclidine Scrn Ur Amphetamine Screen U Methamphetamines Scrn U Benzodiazepines Scrn Urine Cocaine Screen U Cannabinoids Screen Ethyl Alcohol < 5.0 06/19/20 06/19/20 14:30 14:34 WBC RBC Hgb Hct MCV MCH MCHC RDW Plt Count MPV Neut # (Auto) Lymph # (Auto) [place] # (Auto) Eos # (Auto) Baso # (Auto) Absolute Nucleated RBC Nucleated RBC % Sodium Potassium Chloride Carbon Dioxide Anion Gap BUN Creatinine Estimated GFR (MDRD) Glucose Calcium Total Bilirubin AST ALT Alkaline Phosphatase Total Protein Albumin Globulin Albumin/Globulin Ratio Lipase Urine Color YELLOW Urine Clarity HAZY Urine pH 8.5 H Ur Specific [place] 1.015 Urine Protein TRACE Urine Glucose (UA) NEGATIVE Urine Ketones NEGATIVE Urine Occult Blood NEGATIVE Urine Nitrite NEGATIVE Urine Bilirubin NEGATIVE Urine Urobilinogen 0.2 (NORMAL) Ur Leukocyte Esterase NEGATIVE Urine RBC None Seen Urine WBC 0-3 Ur Squamous Epith Cells NONE SEEN Amorphous Sediment Few Urine Bacteria None Seen Ur Microscopic Review INDICATED Urine Culture Comments NOT INDICATED Nasal Adenovirus (PCR) NOT DETECTED Nasal B. parapertussis DNA (PCR) NOT DETECTED Nasal Coronavir 229E PCR NOT DETECTED Nasal Coronavir HKU1 PCR NOT DETECTED Nasal Coronavir NL63 PCR NOT DETECTED Nasal Coronavir OC43 PCR NOT DETECTED Nasal Enterovir/Rhinovir PCR NOT DETECTED Nasal Influenza B PCR NOT DETECTED Nasal Influenza A PCR NOT DETECTED Nasal Parainfluen 1 PCR NOT DETECTED Nasal Parainfluen 2 PCR NOT DETECTED Nasal Parainfluen 3 PCR NOT DETECTED Nasal Parainfluen 4 PCR NOT DETECTED Nasal RSV (PCR) NOT DETECTED Nasal B.pertussis DNA PCR NOT DETECTED Nasal C.pneumoniae (PCR) NOT DETECTED Sanjeev Human Metapneumo PCR NOT DETECTED Nasal M.pneumoniae (PCR) NOT DETECTED Nasal SARS-CoV-2 (PCR) NOT DETECTED Salicylates Urine Opiates Screen POSITIVE H Ur Oxycodone Screen NEGATIVE Urine Methadone Screen NEGATIVE Ur Propoxyphene Screen NEGATIVE Acetaminophen Ur Barbiturates Screen NEGATIVE Ur Tricyclics Screen NEGATIVE Ur Phencyclidine Scrn NEGATIVE Ur Amphetamine Screen POSITIVE H U Methamphetamines Scrn POSITIVE H U Benzodiazepines Scrn NEGATIVE Urine Cocaine Screen NEGATIVE U Cannabinoids Screen NEGATIVE Ethyl Alcohol PD MEDICAL DECISION MAKING - ED course Complexity details: reviewed results, re-evaluated patient (Abdomen is soft, nontender nondistended on serial examination. Well-hydrated. Tolerating p.o. without difficulty.), considered differential, d/w patient, d/w sql server consultant ED course: No significant lab abnormalities. Refuses any medications here. Tolerating PO without diff. no hematemesis. No vomiting here. No diarrhea or constipation. SW gave resources for drug rehab. Patient counseled regarding signs and symptoms for which I believe and urgent re-evaluation would be necessary. Patient with good understanding of and agreement to plan and is comfortable going home at this time This document was made in part using voice recognition software. While efforts are made to proofread this document, sound alike and grammatical errors may occur. Patient was offered a crisis respite bed, but he does not want to go to this. He does not meet criteria for involuntary commitment at this time. Tolerating p.o. without any difficulty. Eating pretzels and drinking water. Departure - Departure Disposition: 01 Home, Self Care Clinical Impression: Nausea, Methamphetamine abuse, Heroin use Condition: Good Instructions: ED Drug Abuse General Follow-Up: your,doctor in 1 week [Other] Prescriptions: Ondansetron Odt [Zofran] 4 mg TL Q6H PRN #5 tablet PRN Reason: Nausea / Vomiting Comments: You can use the Zofran as needed for nausea. Follow-up with your doctor for further care. Return if you worsen. Follow-up with the resources from social work today as well. Discharge Date/Time: 06/19/20 15:45
[2020-06-19 13:07] LABS: BASOPHILS % (AUTO) 0.3 %; EOSINOPHILS # (AUTO) 0.2 10^3/uL (0.0-0.7); EOSINOPHILS % (AUTO) 1.8 %; HGB - HEMOGLOBIN 15.3 g/dL (14.0-18.0); LYMPHOCYTES # (AUTO) 1.7 10^3/uL (1.5-3.5); LYMPHOCYTES % (AUTO) 15.1 %; MEAN CORPUSCULAR HEMOGLOBIN 30.6 pg (27.0-31.0); MEAN CORPUSCULAR VOLUME 92.6 fL (80.0-94.0); MEAN PLATELET VOLUME 10.3 fL (7.4-11.4); MONOCYTES # (AUTO) 0.4 10^3/uL (0.0-1.0); MONOCYTES % (AUTO) 3.7 %; NEUTROPHILS # (AUTO) 8.7 10^3/uL (1.5-6.6); NEUTROPHILS % (AUTO) 78.9 %; PLT - PLATELET COUNT 342 10^3/uL (130-450); RED CELL DISTRIBUTION WIDTH 12.5 % (12.0-15.0)
[2020-06-19 13:21] LABS: ALBUMIN 4.4 g/dL (3.2-5.5); ALBUMIN/GLOBULIN RATIO 1.3 (1.0-2.2); BILIRUBIN,TOTAL 0.6 mg/dL (0.2-1.0); CALCIUM 9.1 mg/dL (8.5-10.3); CREATININE 0.8 mg/dL (0.6-1.2); TOTAL PROTEIN 7.7 g/dL (6.7-8.2)
[2020-06-19 14:01] VITALS: BP 158/72
[2020-06-19 14:35] LABS: MUDS CUTOFF CONCENTRATIONS CUTOFF CONC BELOW:
[2020-06-19 14:40] LABS: BILIRUBIN,URINE NEGATIVE (NEGATIVE); GLUCOSE, URINE (UA) NEGATIVE (NEGATIVE); KETONES,URINE (UA) NEGATIVE (NEGATIVE); LEUKOCYTE ESTERASE, URINE NEGATIVE (NEGATIVE); NITRITE,URINE NEGATIVE (NEGATIVE); OCCULT BLOOD,URINE NEGATIVE (NEGATIVE); PH,URINE 8.5 PH (5.0-7.5); PROTEIN,URINE TRACE mg/dL (NEGATIVE); UROBILINOGEN,URINE 0.2 (NORMAL) E.U./dL (NORMAL)
[2020-06-19 14:46] LABS: ACETAMINOPHEN < 10 ug/mL (10-30); SALICYLATE < 6.0 mg/dL
[2020-06-19 14:48] LABS: CLARITY,URINE HAZY (CLEAR)
[2020-06-19 15:00] LABS: AMPHETAMINE SCREEN,URINE POSITIVE (NEGATIVE); BENZODIAZEPINES SCREEN, URINE NEGATIVE (NEGATIVE); COCAINE SCREEN URINE NEGATIVE (NEGATIVE); METHADONE SCREEN, URINE NEGATIVE (NEGATIVE); METHAMPHETAMINES SCREEN, URINE POSITIVE (NEGATIVE); OPIATE SCREEN, URINE POSITIVE (NEGATIVE); TRICYCLIC ANTIDEPRESSANT,URINE NEGATIVE (NEGATIVE)
[2020-06-19 15:01] LABS: OXYCODONE SCREEN, URINE NEGATIVE (NEGATIVE); PROPOXYPHENE SCREEN, URINE NEGATIVE (NEGATIVE)
[2020-06-19 15:06] LABS: AMORPHOUS SEDIMENT,UR Few /LPF; BACTERIA,URINE None Seen /HPF (None Seen); RBC,URINE None Seen /HPF (0-5); SQUAMOUS EPITHELIAL CELL,UR NONE SEEN (<= Few)
[2020-06-19 15:29] LABS: C. PNEUMONIAE- RESP PCR PANEL NOT DETECTED
== END 2020-06-19 15:45 | disposition home or self-care (01) ==
LOC: ED 11:58
DX: F15.10 Other stimulant abuse, uncomplicated (principal); F11.90 Opioid use, unspecified, uncomplicated; R11.2 Nausea with vomiting, unspecified; R10.13 Epigastric pain; Z20.828 Contact with and (suspected) exposure to other viral communicable diseases; F17.200 Nicotine dependence, unspecified, uncomplicated
CPT/HCPCS: 0202U; 80053; 80306; 80307; 80320; 80329; 81001; 83690; 85025; 99283; 99284; A9270; 36415; 81003; 87086

== ENCOUNTER 2020-08-28 19:26 | Emergency (ER) | payer MEDICAID ==
[2020-08-28] MEDS ORDERED: SULFAMETH/TRIMETH DS 800/160 MG TABLET PO STA (19:43)
--- NOTE | 2020-08-28 19:45 | ED Physician Documentation ---
PD HPI WOUND RECHECK - Stated complaint Stated Complaint: LT LEG WOUND - Chief complaint Chief Complaint: Wound - Histroy obtained from History obtained from: Patient - Additional information Additional information: 29-year-old gentleman with history of methamphetamine use, both inhalation and injection presents with multiple purulent wounds to both lower extremities. Thinks he may have had a fever the other day. Time course is a week or 2. Not much pain. Review of Systems Ten Systems: 10 systems reviewed and negative Constitutional: reports: Fever, Chills Ears: reports: Reviewed and negative Nose: reports: Reviewed and negative Throat: reports: Reviewed and negative Cardiac: reports: Reviewed and negative Respiratory: reports: Reviewed and negative PD PAST MEDICAL HISTORY - Past Medical History Cardiovascular: None Respiratory: None Neuro: None Endocrine/Autoimmune: None GI: None : None HEENT: None Psych: Bipolar disorder, ADD/ADHD, Other Musculoskeletal: Chronic back pain Derm: None - Past Surgical History Past Surgical History: Yes HEENT: Tonsil/Adenoidectomy - Present Medications Home Medications: Ambulatory Orders Medication Instructions Recorded Confirmed Sulfamethox/Trimeth 800/160 1 each PO BID #20 tablet 08/28/20 [Bactrim Ds] - Allergies Allergies/Adverse Reactions: Allergies Allergy/AdvReac Type Severity Reaction Status Date / Time nickel Allergy Rash Verified 08/28/20 19:34 zinc Allergy Rash Verified 08/28/20 19:34 - Social History Does the pt smoke?: Yes Smoking Status: Current every day smoker Does the pt drink ETOH?: No Does the pt have substance abuse?: Yes - Immunizations Immunizations are current?: No - POLST Patient has POLST: No PD ED PE NORMAL - Vitals Vital signs reviewed: Yes - General General: Alert and oriented X 3, No acute distress - Derm Derm: Other (Multiple picked at ulcerated lesions on both legs. A culture was obtained from the medial left calf. There are some cellulitic areas as well.) - Neuro Neuro: Alert and oriented X 3, Normal speech Results - Vitals Vitals: Vital Signs - 24 hr 08/28/20 08/28/20 19:30 19:56 Temperature 36.0 C L 36.5 C Heart Rate 98 95 Respiratory 16 18 Rate Blood Pressure 136/71 H 135/72 H O2 Saturation 100 98 Oxygen O2 Source Room air PD MEDICAL DECISION MAKING - ED course ED course: 29-year-old homeless male who has been using methamphetamines has multiple purulent ulcers of the lower extremities. Wound culture was taken from the left medial calf. Staph is highly suspected given the circumstances. Given his lack of ability to follow-up with PCP or a telephone he was advised to simply return on for wound check and culture review. Departure - Departure Disposition: Home, Self Care Clinical Impression: Staphylococcal infection of skin Condition: Good Record reviewed to determine appropriate education?: Yes Instructions: ED Infec Skin Cellulitis Prescriptions: Sulfamethox/Trimeth 800/160 [Bactrim Ds] 1 each PO BID #20 tablet Comments: We are performing a wound culture, the results should be done in 48-72 hours. If antibiotic change is necessary we will call you. Return if worse in the meantime, especially if you develop increased pain, fevers, cannot keep down the medication. Otherwise follow-up with your physician in approximately 2-3 days. Discharge Date/Time: 08/28/20 19:58
[2020-08-28 19:58] VITALS: BP 135/72
== END 2020-08-28 19:58 | disposition home or self-care (01) ==
LOC: ED 19:26
DX: L03.116 Cellulitis of left lower limb (principal); L03.115 Cellulitis of right lower limb; B95.8 Unspecified staphylococcus as the cause of diseases classified elsewhere; L97.929 Non-pressure chronic ulcer of unspecified part of left lower leg with unspecified severity; L97.919 Non-pressure chronic ulcer of unspecified part of right lower leg with unspecified severity; Z59.0 Homelessness; F17.200 Nicotine dependence, unspecified, uncomplicated
CPT/HCPCS: 87070; 87077; 87181; 87205; 99283; A9270

== ENCOUNTER 2020-09-19 20:34 | Outpatient (CLI) | payer MEDICAID ==
--- OUTSIDE RECORDS SUMMARY | 2020-09-26 23:44 | EXTERNAL MEDICAL SUMMARY RPT | Continuity of Care Document ---
:1990 Demographics Phone Unavailable Preferred Language Unknown Marital Status Unknown Confucianist Affiliation Unknown Race Unknown Ethnic Group Unknown Author Organization [facility] Address [address] [place] [address] Phone Social History date description facility [phone]
== END 2020-09-19 20:35 | disposition critical access hospital (66) ==
LOC: EMS 20:34
PROVIDERS: ATTEND Emergency Medicine
DX: L98.9 Disorder of the skin and subcutaneous tissue, unspecified (principal); Z59.0 Homelessness
CPT/HCPCS: A0425; A0429

== ENCOUNTER 2020-09-19 20:50 | Emergency (ER) | payer MEDICAID ==
[2020-09-19] MEDS ORDERED: LORazepam 2 MG/ML VIAL IVP STA (21:27)
[2020-09-19] MEDS ORDERED: BUFFERED LIDOCAINE 10 ML SYRINGE SUBQ STA (21:27)
[2020-09-19] MEDS ORDERED: ceFAZolin 1 GM VIAL IM STA (21:27)
[2020-09-19] MEDS ORDERED: HYDROmorphone 2 MG/ML VIAL IM STA (21:27)
--- NOTE | 2020-09-19 21:32 | ED Physician Documentation ---
History of Present Illness - Stated complaint Stated Complaint: INSECT BITES - Chief complaint Chief Complaint: General - History obtained from History obtained from: Patient - Additonal information Additional information: 29-year-old gentleman with history of homelessness and IV drug abuse was seen 22 days ago with purulent wounds on the lower extremities. He was initially placed on Bactrim, subsequent culture grew MSSA and group A strep. He was called in a prescription for penicillin. States he lost one of the prescriptions but finished the second 2. Finished few days ago. Now has a few day history of shooters abscesses on both arms and also a painful lump under the left mandible. Review of Systems Constitutional: denies: Fever, Chills Cardiac: denies: Chest pain / pressure, Palpitations Respiratory: denies: Dyspnea, Cough PD PAST MEDICAL HISTORY - Past Medical History Cardiovascular: None Respiratory: None Neuro: None Endocrine/Autoimmune: None GI: None : None HEENT: None Psych: Bipolar disorder, ADD/ADHD, Other Musculoskeletal: Chronic back pain Derm: None - Past Surgical History Past Surgical History: Yes HEENT: Tonsil/Adenoidectomy - Present Medications Home Medications: Ambulatory Orders Medication Instructions Recorded Confirmed Sulfamethox/Trimeth 800/160 1 each PO BID #20 tablet 08/28/20 [Bactrim Ds] cephALEXin [Keflex] 500 mg PO Q6H #40 cap 09/19/20 - Allergies Allergies/Adverse Reactions: Allergies Allergy/AdvReac Type Severity Reaction Status Date / Time nickel Allergy Rash Verified 08/28/20 19:34 zinc Allergy Rash Verified 08/28/20 19:34 - Social History Does the pt smoke?: Yes Smoking Status: Current every day smoker Does the pt drink ETOH?: No Does the pt have substance abuse?: Yes - Immunizations Immunizations are current?: No - POLST Patient has POLST: No PD ED PE NORMAL - Vitals Vital signs reviewed: Yes - General General: Alert and oriented X 3, No acute distress - Cardiac Cardiac: RRR, No murmur - Extremities Extremities: Other (Large pointed abscess over the dorsal right forearm, distally. Large pointed abscess just above the antecubital fossa on the left. There is a tender lump in the left submandibular area which is firm and without fluid collection on bedside ultrasound.) - Neuro Neuro: Alert and oriented X 3, Normal speech Results - Vitals Vitals: Vital Signs - 24 hr 03/30/21 03/30/21 20:58 21:18 Temperature 37.3 C Heart Rate 118 H 117 H Respiratory 14 18 Rate Blood Pressure 137/67 H 137/67 H O2 Saturation 96 98 Oxygen O2 Source Room air Procedures - Abscess I&D (location) R arm Preparation: Confirmed with ultrasound, Alcohol, Lidocaine 1% Incision: Incised with scalpel, Purulent drainage, Loculations broken, Packed, Culture obtained Other: Pt tolerated well, Dressing applied, Antibiotic prescribed L arm Preparation: Confirmed with ultrasound, Alcohol, Lidocaine 1% Incision: Incised with scalpel, Purulent drainage, Loculations broken, Packed, Culture obtained Other: Pt tolerated well, Dressing applied, Antibiotic prescribed PD MEDICAL DECISION MAKING - ED course ED course: 29-year-old gentleman with methamphetamine abuse, injection drug user presents with multiple shooters abscesses. The ones on the right and left arm were incised and drained and he was given IM Ancef here as well as before the I&D's he was given some IM Dilaudid and Ativan to help with anxiolysis and pain. Departure - Departure Disposition: 01 Home, Self Care Clinical Impression: Abscess of multiple sites Condition: Good Record reviewed to determine appropriate education?: Yes Assessment: absc Instructions: ED Drug Abuse General, ED Abscess IandD Prescriptions: cephALEXin [Keflex] 500 mg PO Q6H #40 cap Comments: Return in 2 days for packing removal and culture review. Sooner if worse.
[2020-09-19] MEDS ORDERED: LORazepam 2 MG/ML VIAL IM STA (21:43)
[2020-09-19 22:50] VITALS: BP 131/69
== END 2020-09-19 23:20 | disposition home or self-care (01) ==
LOC: EDUNIT# → ED 20:50
DX: L02.413 Cutaneous abscess of right upper limb (principal); L02.414 Cutaneous abscess of left upper limb; R22.0 Localized swelling, mass and lump, head; F15.10 Other stimulant abuse, uncomplicated; F17.200 Nicotine dependence, unspecified, uncomplicated
CPT/HCPCS: 10061; 87070; 87077; 87181; 87205; 96372; 99283; J1170; J2060

== ENCOUNTER 2020-09-21 16:21 | Outpatient (CLI) | payer MEDICAID ==
--- OUTSIDE RECORDS SUMMARY | 2020-09-27 01:21 | EXTERNAL MEDICAL SUMMARY RPT | Continuity of Care Document ---
:1990 Demographics Phone Unavailable Preferred Language Unknown Marital Status Unknown Hinduism Affiliation Unknown Race Unknown Ethnic Group Unknown Author Organization [facility] Address [address] [place] [address] Phone Social History date description facility [phone]
== END 2020-09-21 16:22 | disposition critical access hospital (66) ==
LOC: EMS 16:21
PROVIDERS: ATTEND Emergency Medicine
DX: R68.84 Jaw pain (principal); R22.1 Localized swelling, mass and lump, neck; L53.9 Erythematous condition, unspecified
CPT/HCPCS: A0425; A0429; A0999

== ENCOUNTER 2020-09-21 16:43 | Inpatient (IN) | payer MEDICAID ==
[2020-09-21] MEDS ORDERED: SODIUM CHLORIDE 0.9% 1,000 ML IV STA ×3 (17:00→19:37)
[2020-09-21] MEDS ORDERED: VANCOMYCIN INJ 1 GM in SODIUM CHLORIDE 0.9% 500 ML IV STA (17:01)
[2020-09-21] MEDS ORDERED: PIPERACILLIN/TAZOBACTAM 3.375 GM in SODIUM CHLORIDE 0.9% MINIBAG 100 ML IV STA (17:01)
--- NOTE | 2020-09-21 17:08 | ED Physician Documentation ---
History of Present Illness - Stated complaint Stated Complaint: JAW SWELLING - Chief complaint Chief Complaint: Wound - History obtained from History obtained from: Patient - History of Present Illness Timing: Today - Additonal information Additional information: Patient is a 29-year-old male who presents to the emergency department with left-sided jaw swelling. He does use IV heroin and methamphetamine. He was last seen 2 days ago and had bilateral forearm abscesses drained, he states that these are doing well. He never picked up his prescriptions for antibiotics. He states the swelling on the neck has continued to worsen. Having difficulty swallowing and opening his mouth now. Worse with movement, better with rest. He states he has had subjective fevers at home. Review of Systems Ten Systems: 10 systems reviewed and negative Constitutional: reports: Fever (T 101 with EMS). denies: Chills Respiratory: denies: Cough GI: denies: Vomiting, Diarrhea Skin: denies: Rash Musculoskeletal: denies: Neck pain, Back pain Neurologic: denies: Headache PD PAST MEDICAL HISTORY - Past Medical History Cardiovascular: None Respiratory: None Neuro: None Endocrine/Autoimmune: None GI: None : None HEENT: None Psych: Bipolar disorder, ADD/ADHD, Other Musculoskeletal: Chronic back pain Derm: None - Past Surgical History Past Surgical History: Yes HEENT: Tonsil/Adenoidectomy - Present Medications Home Medications: Ambulatory Orders Medication Instructions Recorded Confirmed Sulfamethox/Trimeth 800/160 1 each PO BID #20 tablet 08/28/20 [Bactrim Ds] cephALEXin [Keflex] 500 mg PO Q6H #40 cap 09/19/20 - Allergies Allergies/Adverse Reactions: Allergies Allergy/AdvReac Type Severity Reaction Status Date / Time nickel Allergy Rash Verified 09/21/20 16:49 zinc Allergy Rash Verified 09/21/20 16:49 - Social History Does the pt smoke?: Yes Smoking Status: Current every day smoker Does the pt drink ETOH?: No Does the pt have substance abuse?: Yes - Immunizations Immunizations are current?: No - POLST Patient has POLST: No PD ED PE NORMAL - Vitals Vital signs reviewed: Yes - General General: Alert and oriented X 3, No acute distress - HEENT HEENT: Moist mucous membranes - Neck Neck: Supple, no meningeal sign, Other (Large left-sided neck swelling, firm, indurated and erythematous. Large area from angle of mandilble to mid neck. No drainage.) - Cardiac Cardiac: RRR - Respiratory Respiratory: Clear bilaterally - Abdomen Abdomen: Normal bowel sounds, Soft, Non tender, Non distended - Derm Derm: Warm and dry - Extremities Extremities: Other (Healing abscesses to the bilateral forearms, left AC and right dorsum of the forearm. Minimal cellulitis. No drainage) - Neuro Neuro: Alert and oriented X 3 - Psych Psych: Normal mood, Normal affect Results - Vitals Vitals: Vital Signs - 24 hr 09/21/20 09/21/20 16:49 19:17 Temperature 36.7 C Heart Rate 109 H 109 H Respiratory 18 16 Rate Blood Pressure 145/67 H 157/71 H O2 Saturation 100 100 Oxygen O2 Source Room air - Rads (name of study) Ct neck Radiology: Prelim report reviewed, EMP read contemporaneously, See rad report PD MEDICAL DECISION MAKING - ED course Complexity details: reviewed results, re-evaluated patient, considered differential, d/w patient, d/w cleaning validation consultant ED course: 29-year-old male with left-sided neck swelling, appears to be lai lulitis/myositis. Given IV antibiotics. Dr. Dunn from [facility] consulted and will follow up as an inpatient. Discussed with Dr. Lynne, hospitalist who accepts. IMPRESSION: 1. Extensive left neck soft tissue and muscle inflammation/swelling concerning for infectious cellulitis/myositis. 2. Multiple bilateral neck enlarged lymph nodes which could be reactive or neoplastic. 3. No abscess. Departure - Departure Disposition: [facility] DC/er Clinical Impression: Methamphetamine abuse Myositis Qualifiers: Myositis type: infective Myositis location: other site Qualified Code(s): M60.08 - Infective myositis, other site Cellulitis Qualifiers: Site of cellulitis: unspecified site Qualified Code(s): L03.90 - Cellulitis, unspecified Condition: Stable Discharge Date/Time: 09/21/20 21:23
[2020-09-21] MEDS ORDERED: VANCOMYCIN INJ 2 GM in SODIUM CHLORIDE 0.9% 500 ML IV STA (17:13)
[2020-09-21] MEDS ORDERED: IOVERSOL 320 100 ML VIAL IVP ONE ×2 (17:15→19:02)
--- NOTE | 2020-09-21 18:19 | CONSULTATION NOTE ---
Referring Provider Name of Referring Provider:: Natanael Mack Consult Date: 09/21/20 Chief Complaint - Chief Complaint Chief Complaint: L Facial swelling History of Present Illness - History of Present Illness HPI Comment/Other: 29 yo M w/ 3 day h/o increasing swelling of the L side of the face. Denies any recent tooth pain or visits to the dentist. He does not know the cause of the swelling. He suspects it may be related to his recent arm abscesses, which are related to IV drug abuse. Denies h/o oral cancer, drainage in the mouth, bad taste, fever. Endorses dysphagia, dyspnea, odynophagia, trismus. History - Past Medical History Cardiovascular: reports: None Respiratory: reports: None Neuro: reports: None Endocrine/Autoimmune: reports: None GI: reports: None : reports: None HEENT: reports: None Psych: reports: Bipolar disorder, ADD/ADHD, Other Musculoskeletal: reports: Chronic back pain Derm: reports: None MRSA Hx?: No - Past Surgical History HEENT: reports: Tonsil/Adenoidectomy - Substance History Abuse: Recurrent use of substance despite neg consequences: Amphetamine - POLST Patient has POLST: No Meds/Allgy - Home Medications Home Medications: Ambulatory Orders Medication Instructions Recorded Confirmed Sulfamethox/Trimeth 800/160 1 each PO BID #20 tablet 08/28/20 [Bactrim Ds] cephALEXin [Keflex] 500 mg PO Q6H #40 cap 09/19/20 - Allergies Allergies/Adverse Reactions: Allergies Allergy/AdvReac Type Severity Reaction Status Date / Time nickel Allergy Rash Verified 09/21/20 16:49 zinc Allergy Rash Verified 09/21/20 16:49 Review of Systems - All Other Systems All Other Systems: reports: Other (A 14 point ROS was completed and found to be negative except as noted above in HPI) Exam - Vital Signs Reviewed Vital Signs: Yes Vital Signs: Vital Signs x48h Temp Pulse Resp BP Pulse Ox 09/21/20 16:49 36.7 C 109 H 18 145/67 H 100 - Physical Exam General Appearance: positive: Mild distress Eyes Bilateral: positive: PERRL, EOMI ENT: positive: Other (SHEREEN 18mm. Occlusion stable and repeatable. No intraoral swelling. No obvious decayed teeth. Exam limited by trismus. L TMJ: erythematous. No bulge or A/F level. Hears better from the R ear than the L, acute.) Neck: positive: Other (Severe swelling of the R parotid area from the mastoid process anteriorly to the mental foramen. The swelling is indurated. The skin over the swelling is normal in texture, without any scabs or wounds. There is mild erythema consistent with cellulitis. Clear saliva from L aris's duct) Respiratory: positive: No respiratory distress Cardiovascular: positive: Tachycardia Peripheral Pulses: positive: 2+ Abdomen: positive: Non-tender, No distention Skin: positive: Other (Multiple arm lesions consistent with IVDA) Extremities: positive: Full ROM Neurologic/Psychiatric: positive: CN's nml (2-12) Conclusion/Plan - Diagnosis Diagnosis: L Neck cellulitis - Plan Plan: 29 yo M w/ L neck cellulitis and/or abscess of unclear etiology. - DD: Dental abscess vs parotitis. Mastoiditis, peritonsillar abscess seem unlikely given the location of the swelling. Abscess of skin origin seems unlikely given lack of skin wound over the area. P: F/u CT soft tissue neck w/ contrast. - f/u labs - consider admission given significant swelling, trismus, and reported dysphagia and dyspnea - IV abx/ surgery depending on the cause of swelling <> dental origin: Unasyn 3g q6h, I&D in OR w/ removal of offending tooth <> parotitis: Vancomycin and hydration, likely no surgery <> skin abscess: abx per IM, I&D if fluid collection on CT - blood cultures if fever - elevate HOB - NPO - If the patient is taken to the med/surg floor please have him shower and shave his face Thank you for including me in the care of this patient. Please call or text w/ questions. Korey Dunn, DDS [phone]
[2020-09-21] MEDS ORDERED: MORPHINE 2 MG/ML CARPUJECT IVP STA (18:47)
[2020-09-21] MEDS ORDERED: DEXAMETHASONE 10 MG/ML VIAL IVP STA (18:47)
--- NOTE | 2020-09-21 19:31 | CT Report ---
PROCEDURE: SOFT TISSUE NECK W INDICATIONS: L sided neck abscess CONTRAST: IV CONTRAST: Optiray 320 ml: 100 PO CONTRAST: *NO PO CONTRAST TECHNIQUE: After the administration of intravenous contrast, 3.0 mm axial sections acquired from the sella to th e aortic arch. Additional oblique axial 3.0 mm sections acquired through the pharynx. 3 mm thick co cresencio reformats were generated. For radiation dose reduction, the following was used: automated exp osure control, adjustment of mA and/or kV according to patient size. COMPARISON: None. FINDINGS: Image quality: Excellent. Lymph nodes: Enlarged and prominent bilateral level 1, level 2, level 3 and left level 4 lymph nodes are noted which could be reactive or neoplastic Vessels: Visualized vasculature appears patent. Neck spaces: The oropharynx, nasopharynx, and pharynx demonstrate no mucosal lesions. The vocal cor ds, false vocal cords, pyriform sinuses, epiglottis, vallecula, and tongue base all appear normal. So ft tissue inflammation/swelling involving the left neck extending from the left parotid gland to near the left clavicle. The left strap muscles and sternocleidomastoid muscle are enlarged. No abscess id entified. Glands: The left parotid gland and submandibular gland are prominent likely related to inflammation. No parotid or submandibular ductal dilatation or sialoliths. The thyroid is normal in size. Miscellaneous: Visualized brain and orbits appear normal. Lung apices appear clear. Superficial so ft tissues appear normal. Bones: No suspicious bony lesions. Visualized sinuses and mastoids appear unremarkable. IMPRESSION: 1. Extensive left neck soft tissue and muscle inflammation/swelling concerning for infectious celluli tis/myositis. 2. Multiple bilateral neck enlarged lymph nodes which could be reactive or neoplastic. 3. No abscess. Reviewed by: Lucina Gomez MD, PhD on 09/21/2020 7:30 PM PDT Approved by: Lucina Gomez MD, PhD on 09/21/2020 7:30 PM PDT Station ID: [id number]
[2020-09-21] MEDS ORDERED: MORPHINE 2 MG/ML CARPUJECT IVP PRN (19:57)
[2020-09-21] MEDS ORDERED: ONDANSETRON ODT 4 MG TABLET TL PRN (19:57)
[2020-09-21 20:53] LABS: B. PARAPERTUSSIS- RESP PCR PAN NOT DETECTED; B. PERTUSSIS- RESP PCR PANEL NOT DETECTED; C. PNEUMONIAE- RESP PCR PANEL NOT DETECTED; CORONAVIRUS 229E-RESP PCR NOT DETECTED; CORONAVIRUS HKU1-RESP PCR NOT DETECTED; CORONAVIRUS NL63-RESP PCR NOT DETECTED; CORONAVIRUS OC43-RESP PCR NOT DETECTED; HUMAN METAPNEUMOVIRUS NOT DETECTED; INFLUENZA A- RESP PCR PANEL NOT DETECTED; INFLUENZA B - RESP PCR PANEL NOT DETECTED; M. PNEUMONIAE- RESP PCR PANEL NOT DETECTED; PARAINFLUENZA VIRUS 1 NOT DETECTED; PARAINFLUENZA VIRUS 2 NOT DETECTED; PARAINFLUENZA VIRUS 3 NOT DETECTED; PARAINFLUENZA VIRUS 4 NOT DETECTED; RHINOVIRUS/ENTEROVIRUS NOT DETECTED; RSV- RESP PCR PANEL NOT DETECTED; SARS-CoV-2 -RESP PCR PANEL NOT DETECTED
--- NOTE | 2020-09-21 21:06 | HISTORY & PHYSICAL EXAMINATION ---
Chief Complaint - Chief Complaint Chief Complaint: Left neck swelling History of Present Illness - Admitted From Admitted From:: ER - History Obtained From Records Reviewed: Yes History obtained from: Patient, ER Physician, EMR - History of Present Illness HPI Comment/Other: This is a 29-year-old male with a past medical history significant for intr avenous drug use who presents today complaining of worsening left neck swelling. He was seen in the ER 2 days ago for abscess over both of his arms as well as some left neck swelling. The abscess in his arms were drained and he was prescribed Keflex. He states he did not take the antibiotics after discharge. He noted that after discharge, the swelling continued to progress in his left neck and so he was brought back to the emergency department today after he called an ambulance. He reports subjective fevers yesterday evening. He has difficulty swallowing and pain with swallowing. Reports a mild sore throat. He has difficulty opening his mouth due to pain in his left mandible. He denies injecting in his neck. He reports he only injects methamphetamine in both of his arms. His last use was yesterday. Denies injecting anywhere else including his lower extremities. He reports no chest pain or dyspnea. Denies nausea, vomiting, abdominal pain. He reports feeling quite thirsty at the moment as he has not had anything to eat or drink for over a day. He states that he is homeless. He denies any prior episodes of neck swelling. Reports no shoulder pain. He underwent a CT of the neck in the emergency department which was concerning for soft tissue cellulitis/myositis of the sternocleidomastoid. He was seen by Dr. Dunn of oral surgery who agreed with admission for IV antibiotics and he will continue to follow the patient. The patient unfortunate difficult stick and labs were unable to be obtained in the emergency department but he did receive 3 L of normal saline as well as vancomycin and Zosyn. Given the above findings, medicine was consulted for admission. History - Past Medical History Cardiovascular: reports: None Respiratory: reports: None Neuro: reports: None Endocrine/Autoimmune: reports: None GI: reports: None : reports: None HEENT: reports: None Psych: reports: Bipolar disorder Musculoskeletal: reports: Chronic back pain Derm: reports: None MRSA Hx?: No - Past Surgical History HEENT: reports: Tonsil/Adenoidectomy - Family & Social History Family History Comment/Other: He reports his grandfather had diabetes. He states his parents were not healthy but he does not know what medical problems they had. Living arrangement: Homeless Social History Notes: He is homeless. He reports having an aunt and uncle who are close by. He does not work. He injects methamphetamine with last use being yesterday. He smokes less than a half a pack of cigarettes a day and has been doing so since 16. - Substance History Abuse: Recurrent use of substance despite neg consequences: Amphetamine - POLST Patient has POLST: No Meds/Allgy - Home Medications Home Medications: Ambulatory Orders Medication Instructions Recorded Confirmed Sulfamethox/Trimeth 800/160 1 each PO BID #20 tablet 08/28/20 [Bactrim Ds] cephALEXin [Keflex] 500 mg PO Q6H #40 cap 09/19/20 - Allergies Allergies/Adverse Reactions: Allergies Allergy/AdvReac Type Severity Reaction Status Date / Time nickel Allergy Rash Verified 09/21/20 16:49 zinc Allergy Rash Verified 09/21/20 16:49 Review of Systems - Constitutional Constitutional: reports: Fever, Chills, Malaise, Poor appetite - Ears, Nose & Throat Ears, Nose & Throat: reports: Sore throat - Cardiovascular Cariovascular: denies: Chest pain, Edema, Lightheadedness, Exertional dyspnea, Decr. exercise tolerance - Respiratory Respiratory: denies: Cough, SOB at rest, SOB with exertion - Gastrointestinal Gastrointestinal: denies: Abdominal pain, Nausea, Vomiting - Genitourinary Genitourinary: denies: Dysuria, Frequency, Hematuria - Musculoskeletal Musculoskeletal: denies: Joint pain - Integumentary Integumentary: reports: Lesions, Lumps - Neurological Neurological: reports: Headache. denies: General weakness, Focal weakness, Dizziness, Numbness - All Other Systems All Other Systems: reports: Reviewed and negative Prior Level of Functionality: He is independent with his ADL's. Exam - Vital Signs Reviewed Vital Signs: Yes Vital Signs: Vital Signs x48h Temp Pulse Resp BP Pulse Ox 09/21/20 19:17 109 H 16 157/71 H 100 09/21/20 16:49 36.7 C 109 H 18 145/67 H 100 - Physical Exam General Appearance: positive: No acute distress, Alert Eyes Bilateral: positive: Normal inspection, Conjunctivae nml ENT: positive: Dry mucous membranes, Other (Exam is limited due to decreased range of motion of the left TMJ. No obvious erythema or edema. No obvious infected tooth.). negative: No signs of dehydration Neck: positive: Swelling/bruising (He has significant left neck swelling from the mandible down to the clavicle. There is only mild erythema. It is tender to touch. No obvious fluctuance.) Respiratory: positive: No respiratory distress. negative: Wheezes, Rales Cardiovascular: positive: Tachycardia. negative: Irregularly irregular, Systolic murmur Abdomen: positive: Non-tender, No distention. negative: Tenderness, Guarding, Rebound Skin: positive: Warm, Dry, Other (He has multiple 1 to 2 cm lesions over bilateral upper extremities. No purulent drainage. Only mild erythema.) Extremities: positive: Pedal edema (Trace in bilateral lower extremities.) Neurologic/Psychiatric: negative: Disoriented to person, Disoriented to place Conclusion/Plan - Problem List (1) Myositis Conclusion/Plan: His imaging is consistent with myositis of the left sternocleidomastoid. He is tachycardic and reports subjective fevers but is afebrile here. We have had difficulty obtaining labs and so these are still pending but he may potentially be septic. He was evaluated by oral surgery who agreed with admission for antibiotics. We will place him on vancomycin IV given his history of IV drug abuse and will place him on Zosyn as well as there is no obvious clear source of infection at the moment. Will obtain labs and blood cultures today although he has already received antibiotics prior to blood cultures being obtained. We will check an echocardiogram to eval for any possible vegetation. Check CRP. Appreciate Dr. Dunn input. Qualifiers: Myositis type: infective Myositis location: other site Qualified Code(s): M60.08 - Infective myositis, other site (2) Abscess of multiple sites Conclusion/Plan: This was drained in the emergency department 2 days ago and cultures are growing few gram-positive cocci. He will be covered with vancomycin and Zosyn which we have started for the myositis of the left neck. Will follow up cultures. (3) Methamphetamine abuse Conclusion/Plan: He does have a history of intravenous drug use and he states he only uses methamphetamine. His last use was yesterday. We will asked social work to see him to provide him with resources regarding cessation of intravenous drug use. - Diagnostic Imaging Results Diagnostic Imaging Results: positive: Final report reviewed Core Measures - Anticipated LOS I expect patient to be DC'd or transferred within 96 hours.: Yes - Issues Hospital Issues and Management Plan: 29-year-old male with a history of intravenous drug use presents with worsening left neck swelling with imaging consistent for myositis of the left sternocleido mastoid. Will admit for IV antibiotics and oral surgery consult. - DVT/VTE - Prophylaxis VTE/DVT Device ordered at admit?: Yes VTE/DVT Prophylaxis med ordered at admit?: No
[2020-09-21 21:11] LABS: BASOPHILS # (AUTO) 0.1 10^3/uL (0.0-0.1); BASOPHILS % (AUTO) 0.3 %; EOSINOPHILS # (AUTO) 0.2 10^3/uL (0.0-0.7); EOSINOPHILS % (AUTO) 1.3 %; HCT - HEMATOCRIT 36.1 % (42.0-52.0); HGB - HEMOGLOBIN 11.7 g/dL (14.0-18.0); LYMPHOCYTES # (AUTO) 0.8 10^3/uL (1.5-3.5); LYMPHOCYTES % (AUTO) 4.6 %; MEAN CORPUSCULAR HGB CONC 32.4 g/dL (32.0-36.0); MEAN CORPUSCULAR VOLUME 92.6 fL (80.0-94.0); MEAN PLATELET VOLUME 10.1 fL (7.4-11.4); MONOCYTES # (AUTO) 0.4 10^3/uL (0.0-1.0); MONOCYTES % (AUTO) 2.7 %; NEUTROPHILS # (AUTO) 14.8 10^3/uL (1.5-6.6); NEUTROPHILS % (AUTO) 90.6 %; PLT - PLATELET COUNT 352 10^3/uL (130-450); RED CELL DISTRIBUTION WIDTH 12.5 % (12.0-15.0); WHITE BLOOD COUNT 16.4 x10^3/uL (4.8-10.8)
[2020-09-21 21:23] LABS: ALBUMIN 3.1 g/dL (3.2-5.5); ALBUMIN/GLOBULIN RATIO 0.8 (1.0-2.2); BILIRUBIN,TOTAL 0.4 mg/dL (0.2-1.0); CALCIUM 8.6 mg/dL (8.5-10.3); CREATININE 0.8 mg/dL (0.6-1.2); POTASSIUM 4.1 mmol/L (3.5-5.0); TOTAL PROTEIN 7.1 g/dL (6.7-8.2)
[2020-09-21] MEDS ORDERED: LACTATED RINGERS 1,000 ML IV ONE (21:38)
[2020-09-21] MEDS: ACETAMINOPHEN 325 MG TABLET PO PRN (22:26)
[2020-09-21] MEDS: oxyCODONE 5 MG TABLET PO PRN (22:26)
[2020-09-21] MEDS ORDERED: NICOTINE 14 MG PATCH TOP SCH (22:43)
[2020-09-22] MEDS: LACTATED RINGERS 1,000 ML IV SCH ×2 (00:17→14:20)
[2020-09-22] MEDS: PIPERACILLIN/TAZOBACTAM 4.5 GM in SODIUM CHLORIDE 0.9% MINIBAG 100 ML IV SCH ×2 (00:19→04:58)
[2020-09-22] MEDS: SODIUM CHLORIDE FLUSH 0.9% 10 ML SYRINGE IVP SCH ×3 (00:19→17:29)
[2020-09-22] MEDS ORDERED: VANCOMYCIN INJ 2 GM in SODIUM CHLORIDE 0.9% 500 ML IV SCH (05:00)
[2020-09-22 08:56] LABS: BASOPHILS % (AUTO) 0.2 %; HCT - HEMATOCRIT 35.9 % (42.0-52.0); HGB - HEMOGLOBIN 11.4 g/dL (14.0-18.0); LYMPHOCYTES # (AUTO) 1.4 10^3/uL (1.5-3.5); LYMPHOCYTES % (AUTO) 8.7 %; MEAN CORPUSCULAR HEMOGLOBIN 29.6 pg (27.0-31.0); MEAN CORPUSCULAR HGB CONC 31.8 g/dL (32.0-36.0); MEAN CORPUSCULAR VOLUME 93.2 fL (80.0-94.0); MEAN PLATELET VOLUME 10.2 fL (7.4-11.4); MONOCYTES # (AUTO) 0.8 10^3/uL (0.0-1.0); MONOCYTES % (AUTO) 4.9 %; NEUTROPHILS # (AUTO) 13.7 10^3/uL (1.5-6.6); NEUTROPHILS % (AUTO) 85.5 %; PLT - PLATELET COUNT 343 10^3/uL (130-450); RED BLOOD COUNT 3.85 10^6/uL (4.70-6.10); RED CELL DISTRIBUTION WIDTH 12.3 % (12.0-15.0)
[2020-09-22 09:14] LABS: CALCIUM 8.9 mg/dL (8.5-10.3); CREATININE 0.7 mg/dL (0.6-1.2); CRP - C-REACTIVE PROTEIN 12.5 mg/dL (0-1.0); POTASSIUM 4.3 mmol/L (3.5-5.0)
[2020-09-22] MEDS ORDERED: PIPERACILLIN/TAZOBACTAM 3.375 GM in SODIUM CHLORIDE 0.9% MINIBAG 100 ML IV SCH ×2 (10:30→13:00)
--- NOTE | 2020-09-22 12:53 | PROVIDER PROGRESS NOTE ---
Assessment/Plan - Problem List (1) Cellulitis Qualifiers: Site of cellulitis: unspecified site Qualified Code(s): L03.90 - Cellulitis, unspecified Assessment/Plan: clinically pt has great improved, slight and mild erythema at left neck, and mild swelling. pt denies pain. pt feel much better. pt report his swelling was "ten times reduced." blood culture is pending. pt denies swallowing pain or difficult to breath. CRP is slight reduced, WBC is nearly the same Continue antibiotics, IV fluids, continue consult with surgeon, continue pain control. Surgeon recommend regular diet for patient, no plan for procedure now. thank surgeon consult for pt (2) Abscess of multiple sites Conclusion/Plan: pt has multiple sites, per pt state, where he shoot his IV drug, but it is improved, no site is need urgent I/D now. continue IV antibiotics, follow up with culture. (3) Methamphetamine abuse Conclusion/Plan: discussed and educated pt to quit illicit drug, pt did state he make the decision to quit. - Current Meds Current Meds: Current Medications Generic Name Dose Route Start Last Admin Trade Name Narcisoq PRN Reason Stop Dose Admin Acetaminophen 650 mg 09/21/20 19:57 09/21/20 22:26 Acetaminophen 325 Mg Tablet PO 650 mg Q4HR PRN Administration Pain 1 to 4 Lactated Ringer's 1,000 mls @ 150 mls/hr 09/21/20 20:00 09/22/20 09:30 Lr IV Infused .Q6H40M ULI Infusion Oxycodone HCl 5 mg 09/21/20 19:57 09/21/20 22:26 Oxycodone 5 Mg Tablet PO 5 mg Q4HR PRN Administration Pain 5 to 7 Sodium Chloride 10 ml 09/22/20 01:00 09/22/20 00:19 Sodium Chloride Flush 0.9% 10 Ml Syringe IVP Not Given 0100,0900,1700 ULI - Lab Result Fish Bone Diagrams: 09/22/20 08:50 09/22/20 08:50 - Additional Planning My Orders: My Active Orders 09/22/20 Lunch Regular Diet [DIET] Subjective - Subjective Patient Reports: Feeling Better Objective Vital Signs: Vital Signs - 24 hr 09/21/20 09/21/20 09/21/20 16:49 19:17 21:10 Temperature 36.7 C Heart Rate 109 H 109 H 108 H Heart Rate [ Brachial] Respiratory 18 16 16 Rate Blood Pressure 145/67 H 157/71 H 113/42 L Blood Pressure [Right Brachial artery] O2 Saturation 100 100 98 09/21/20 09/22/20 09/22/20 21:30 00:26 05:00 Temperature 37.2 C 37.1 C 36.4 C L Heart Rate Heart Rate [ 106 H 102 H 88 Brachial] Respiratory 16 14 16 Rate Blood Pressure Blood Pressure 136/69 H 147/54 H 123/57 L [Right Brachial artery] O2 Saturation 99 98 96 09/22/20 08:43 Temperature 36.4 C L Heart Rate Heart Rate [ 84 Brachial] Respiratory 20 Rate Blood Pressure Blood Pressure 112/59 L [Right Brachial artery] O2 Saturation 100 Oxygen O2 Source Room air I&O (Last 24 Hrs): Intake and Output Totals x24h 09/20/20 09/21/20 09/22/20 23:59 23:59 23:59 Intake Total 1600 2700 Balance 1600 2700 General: Alert, Oriented x3, Cooperative, No acute distress HEENT: Atraumatic, PERRLA Neck: Supple, Other (mild swelling at left side of neck, slight erthema, no tenderness.) Lymphatic: no adenopathy Neuro: Alert, Non Focal, Oriented Times 3 Cardiovascular: Regular rate, Normal S1, Normal S2 Respiratory: Chest non-tender, No respiratory distress, Breath sounds nml Abdomen: Normal bowel sounds, Soft, No tenderness Extremities: Normal pulses - Results Results: Laboratory Results WBC 16.0 x10^3/uL (4.8-10.8) H 09/22/20 08:50 RBC 3.85 10^6/uL (4.70-6.10) L 09/22/20 08:50 Hgb 11.4 g/dL (14.0-18.0) L 09/22/20 08:50 Hct 35.9 % (42.0-52.0) L 09/22/20 08:50 MCV 93.2 fL (80.0-94.0) 09/22/20 08:50 MCH 29.6 pg (27.0-31.0) 09/22/20 08:50 MCHC 31.8 g/dL (32.0-36.0) L 09/22/20 08:50 RDW 12.3 % (12.0-15.0) 09/22/20 08:50 Plt Count 343 10^3/uL (130-450) 09/22/20 08:50 MPV 10.2 fL (7.4-11.4) 09/22/20 08:50 Neut # (Auto) 13.7 10^3/uL (1.5-6.6) H 09/22/20 08:50 Lymph # (Auto) 1.4 10^3/uL (1.5-3.5) L 09/22/20 08:50 [place] # (Auto) 0.8 10^3/uL (0.0-1.0) 09/22/20 08:50 Eos # (Auto) 0.0 10^3/uL (0.0-0.7) 09/22/20 08:50 Baso # (Auto) 0.0 10^3/uL (0.0-0.1) 09/22/20 08:50 Absolute Nucleated RBC 0.00 x10^3/uL 09/22/20 08:50 Nucleated RBC % 0.0 /100WBC 09/22/20 08:50 Sodium 140 mmol/L (135-145) 09/22/20 08:50 Potassium 4.3 mmol/L (3.5-5.0) 09/22/20 08:50 Chloride 106 mmol/L (101-111) 09/22/20 08:50 Carbon Dioxide 25 mmol/L (21-32) 09/22/20 08:50 Anion Gap 9.0 (6-13) 09/22/20 08:50 BUN 11 mg/dL (6-20) 09/22/20 08:50 Creatinine 0.7 mg/dL (0.6-1.2) 09/22/20 08:50 Estimated GFR (MDRD) 132 (>89) 09/22/20 08:50 Glucose 171 mg/dL (70-100) H 09/22/20 08:50 Lactic Acid 1.0 mmol/L (0.5-2.2) 09/21/20 21:04 Calcium 8.9 mg/dL (8.5-10.3) 09/22/20 08:50 Total Bilirubin 0.4 mg/dL (0.2-1.0) 09/21/20 21:04 AST 31 IU/L (10-42) 09/21/20 21:04 ALT 56 IU/L (10-60) 09/21/20 21:04 Alkaline Phosphatase 95 IU/L (42-121) 09/21/20 21:04 C-Reactive Protein 12.5 mg/dL (0-1.0) H 09/22/20 08:50 Total Protein 7.1 g/dL (6.7-8.2) 09/21/20 21:04 Albumin 3.1 g/dL (3.2-5.5) L 09/21/20 21:04 Globulin 4.0 g/dL (2.1-4.2) 09/21/20 21:04 Albumin/Globulin Ratio 0.8 (1.0-2.2) L 09/21/20 21:04 Lipase 22 U/L (22-51) 09/21/20 21:04 Nasal Adenovirus (PCR) NOT DETECTED 09/21/20 19:58 Nasal B. parapertussis DNA (PCR) NOT DETECTED 09/21/20 19:58 Nasal Coronavir 229E PCR NOT DETECTED 09/21/20 19:58 Nasal Coronavir HKU1 PCR NOT DETECTED 09/21/20 19:58 Nasal Coronavir NL63 PCR NOT DETECTED 09/21/20 19:58 Nasal Coronavir OC43 PCR NOT DETECTED 09/21/20 19:58 Nasal Enterovir/Rhinovir PCR NOT DETECTED 09/21/20 19:58 Nasal Influenza B PCR NOT DETECTED 09/21/20 19:58 Nasal Influenza A PCR NOT DETECTED 09/21/20 19:58 Nasal Parainfluen 1 PCR NOT DETECTED 09/21/20 19:58 Nasal Parainfluen 2 PCR NOT DETECTED 09/21/20 19:58 Nasal Parainfluen 3 PCR NOT DETECTED 09/21/20 19:58 Nasal Parainfluen 4 PCR NOT DETECTED 09/21/20 19:58 Nasal RSV (PCR) NOT DETECTED 09/21/20 19:58 Nasal Screen MRSA (PCR) POSITIVE (NEGATIVE) A* 09/21/20 22:00 Nasal B.pertussis DNA PCR NOT DETECTED 09/21/20 19:58 Nasal C.pneumoniae (PCR) NOT DETECTED 09/21/20 19:58 Sanjeev Human Metapneumo PCR NOT DETECTED 09/21/20 19:58 Nasal M.pneumoniae (PCR) NOT DETECTED 09/21/20 19:58 Nasal SARS-CoV-2 (PCR) NOT DETECTED 09/21/20 19:58 ABX Reporting Has patient been on IV antibiotics over the past 48 hours?: Yes Current Medications - Current Medications Current Medications: Active Medications Acetaminophen (Acetaminophen 325 Mg Tablet) 650 mg PO Q4HR PRN PRN Reason: Pain 1 to 4 Last Admin: 09/21/20 22:26 Dose: 650 mg Documented by: Lactated Ringer's (Lr) 1,000 mls @ 150 mls/hr IV .Q6H40M ULI Last Infusion: 09/22/20 09:30 Dose: Infused Documented by: Vancomycin HCl 1.75 gm/ Sodium (Chloride) 500 mls @ 250 mls/hr IV Q8H ULI Piperacillin Sod/Tazobactam (Sod 3.375 gm/ Sodium Chloride) 100 mls @ 200 mls/hr IV ONCE ULI Stop: 09/22/20 14:00 Piperacillin Sod/Tazobactam (Sod 3.375 gm/ Sodium Chloride) 100 mls @ 25 mls/hr IV Q8H ULI Morphine Sulfate (Morphine 2 Mg/Ml Carpuject) 2 mg IVP Q2HR PRN PRN Reason: Pain 8 to 10 Nicotine (Nicotine 14 Mg Patch) 1 patch TOP 2200 ULI Ondansetron HCl (Ondansetron Odt 4 Mg Tablet) 4 mg TL Q6HR PRN PRN Reason: Nausea / Vomiting Oxycodone HCl (Oxycodone 5 Mg Tablet) 5 mg PO Q4HR PRN PRN Reason: Pain 5 to 7 Last Admin: 09/21/20 22:26 Dose: 5 mg Documented by: Sodium Chloride (Sodium Chloride Flush 0.9% 10 Ml Syringe) 10 ml IVP PRN PRN PRN Reason: NEEDED PER PROVIDER ORDERS Sodium Chloride (Sodium Chloride Flush 0.9% 10 Ml Syringe) 10 ml IVP 0100,0900,1700 ULI Last Admin: 09/22/20 00:19 Dose: Not Given Documented by:
[2020-09-22] MEDS: VANCOMYCIN INJ 1.75 GM in SODIUM CHLORIDE 0.9% 500 ML IV SCH ×2 (14:21→22:08)
[2020-09-22] MEDS: PIPERACILLIN/TAZOBACTAM 3.375 GM in SODIUM CHLORIDE 0.9% MINIBAG 100 ML IV SCH (17:27)
--- NOTE | 2020-09-22 18:01 | PHARMACY PROGRESS NOTE ---
- Best Possible Medication History Admit Date and Time: 09/21/201956 Processed by: Pharmacy Medication History completed: Yes Patient Interview: Pt unable to participate Secondary Source(s): Physician records, Pharmacy records, Insurance records ( PATIENT REPORTS HE DOES NOT TAKE HOME MEDICATIONS) As the person ultimately responsible for medication therapy, providers are able to order a medication from an existing home medication list in [facility] via the "Reconcile Routine" prior to Confirmation of that medication by production support engineer. Such practice is discouraged except when the physician, in their clinical judgment, deems that a medical need exists for a medication without regard to previous use.
[2020-09-22] MEDS: oxyCODONE 5 MG TABLET PO PRN (18:08)
--- NOTE | 2020-09-22 19:17 | CONSULTATION NOTE ---
Consultation Report: Anesthesia called for IV access help. Discussed with Nikki Martin PHOTOGRAPHIC PLATEMAKER who said central line was not needed and PIV would be sufficient. 20 ga IV placed in left hand in 1 attempt without difficulty. Patient tolerate procedure well.
--- NOTE | 2020-09-22 21:25 | PROVIDER PROGRESS NOTE ---
Subjective - Prog Note Date Prog Note Date: 09/22/20 Prog Note Time: 21:23 - Subjective Subjective: Saw patient earlier in the day. He was feeling significantly improved. Remains afebrile. Objective - Vital Signs/Intake & Output Vital Signs: Vital Signs x48h Temp Pulse Resp BP Pulse Ox 09/22/20 19:43 36.6 C 93 20 123/48 L 97 09/22/20 16:05 37.0 C 87 20 116/52 L 99 Intake & Output: Intake & Output 09/19/20 09/20/20 09/21/20 09/22/20 23:59 23:59 23:59 23:59 Intake Total 1600 4170 Balance 1600 4170 - Objective General Appearance: positive: No acute distress, Alert Eyes Bilateral: positive: PERRL, EOMI ENT: positive: Other (Swelling of the L parotid/SCM area decreased, with the induration markedly decreased. The area is no longer a tender and the overlying skin is pink and healthy. [place]: Clear saliva) - Lab Results Fish Bones: 09/22/20 08:50 09/22/20 08:50 Other Labs: Lab Results x24hrs 09/22/20 09/22/20 09/21/20 Range/Units 08:50 08:50 22:00 WBC 16.0 H (4.8-10.8) x10^3/uL RBC 3.85 L (4.70-6.10) 10^6/uL Hgb 11.4 L (14.0-18.0) g/dL Hct 35.9 L (42.0-52.0) % MCV 93.2 (80.0-94.0) fL MCH 29.6 (27.0-31.0) pg MCHC 31.8 L (32.0-36.0) g/dL RDW 12.3 (12.0-15.0) % Plt Count 343 (130-450) 10^3/uL MPV 10.2 (7.4-11.4) fL Neut # (Auto) 13.7 H (1.5-6.6) 10^3/uL Lymph # (Auto) 1.4 L (1.5-3.5) 10^3/uL [place] # (Auto) 0.8 (0.0-1.0) 10^3/uL Eos # (Auto) 0.0 (0.0-0.7) 10^3/uL Baso # (Auto) 0.0 (0.0-0.1) 10^3/uL Absolute Nucleated RBC 0.00 x10^3/uL Nucleated RBC % 0.0 /100WBC Sodium 140 (135-145) mmol/L Potassium 4.3 (3.5-5.0) mmol/L Chloride 106 (101-111) mmol/L Carbon Dioxide 25 (21-32) mmol/L Anion Gap 9.0 (6-13) BUN 11 (6-20) mg/dL Creatinine 0.7 (0.6-1.2) mg/dL Estimated GFR (MDRD) 132 (>89) Glucose 171 H (70-100) mg/dL Calcium 8.9 (8.5-10.3) mg/dL Total Bilirubin (0.2-1.0) mg/dL AST (10-42) IU/L ALT (10-60) IU/L Alkaline Phosphatase (42-121) IU/L C-Reactive Protein 12.5 H (0-1.0) mg/dL Total Protein (6.7-8.2) g/dL Albumin (3.2-5.5) g/dL Globulin (2.1-4.2) g/dL Albumin/Globulin Ratio (1.0-2.2) Lipase (22-51) U/L Nasal Screen MRSA (PCR) POSITIVE A* (NEGATIVE) 09/21/20 09/21/20 Range/Units 21:04 21:04 WBC (4.8-10.8) x10^3/uL RBC (4.70-6.10) 10^6/uL Hgb (14.0-18.0) g/dL Hct (42.0-52.0) % MCV (80.0-94.0) fL MCH (27.0-31.0) pg MCHC (32.0-36.0) g/dL RDW (12.0-15.0) % Plt Count (130-450) 10^3/uL MPV (7.4-11.4) fL Neut # (Auto) (1.5-6.6) 10^3/uL Lymph # (Auto) (1.5-3.5) 10^3/uL [place] # (Auto) (0.0-1.0) 10^3/uL Eos # (Auto) (0.0-0.7) 10^3/uL Baso # (Auto) (0.0-0.1) 10^3/uL Absolute Nucleated RBC x10^3/uL Nucleated RBC % /100WBC Sodium 136 (135-145) mmol/L Potassium 4.1 (3.5-5.0) mmol/L Chloride 101 (101-111) mmol/L Carbon Dioxide 27 (21-32) mmol/L Anion Gap 8.0 (6-13) BUN 9 (6-20) mg/dL Creatinine 0.8 (0.6-1.2) mg/dL Estimated GFR (MDRD) 113 (>89) Glucose 165 H (70-100) mg/dL Calcium 8.6 (8.5-10.3) mg/dL Total Bilirubin 0.4 (0.2-1.0) mg/dL AST 31 (10-42) IU/L ALT 56 (10-60) IU/L Alkaline Phosphatase 95 (42-121) IU/L C-Reactive Protein 14.9 H (0-1.0) mg/dL Total Protein 7.1 (6.7-8.2) g/dL Albumin 3.1 L (3.2-5.5) g/dL Globulin 4.0 (2.1-4.2) g/dL Albumin/Globulin Ratio 0.8 L (1.0-2.2) Lipase 22 (22-51) U/L Nasal Screen MRSA (PCR) (NEGATIVE) Assessment/Plan - Problem List (1) Myositis Impression: Improving myositis. Continues to have clear saliva from the L aris's making parotitis unlikely. Will see again in the am. Currently unlikely that he will need operative intervention. Qualifiers: Myositis type: infective Myositis location: other site Qualified Code(s): M60.08 - Infective myositis, other site
[2020-09-22] MEDS: NICOTINE 14 MG PATCH TOP SCH (22:07)
[2020-09-23] MEDS: PIPERACILLIN/TAZOBACTAM 3.375 GM in SODIUM CHLORIDE 0.9% MINIBAG 100 ML IV SCH ×2 (00:36→08:26)
[2020-09-23] MEDS: SODIUM CHLORIDE FLUSH 0.9% 10 ML SYRINGE IVP SCH ×3 (00:37→17:14)
[2020-09-23] MEDS ORDERED: LACTATED RINGERS 1,000 ML IV ONE (02:10)
[2020-09-23] MEDS: VANCOMYCIN INJ 1.75 GM in SODIUM CHLORIDE 0.9% 500 ML IV SCH ×2 (05:27→14:12)
--- NOTE | 2020-09-23 11:09 | PROVIDER PROGRESS NOTE ---
Subjective - Prog Note Date Prog Note Date: 09/23/20 Prog Note Time: 11:07 - Subjective Pt reports feeling: Improved Subjective: No events overnight. Remains afebrile. Reports feeling improved, still having pain in the L SCM. Objective - Vital Signs/Intake & Output Vital Signs: Vital Signs x48h Temp Pulse Resp BP BP Pulse Ox 09/23/20 09:00 36.5 C 83 18 127/58 L 99 09/23/20 05:00 36.8 C 86 18 111/48 L 97 Intake & Output: Intake & Output 09/20/20 09/21/20 09/22/20 09/23/20 23:59 23:59 23:59 23:59 Intake Total 1600 4270 2770.00 Balance 1600 4270 2770.00 - Objective Neck: positive: Other (Swelling of the L SCM stable since yesterday, slightly decreased. No overlying erythema. No fluctuance.) - Lab Results Fish Bones: 09/22/20 08:50 09/22/20 08:50 Assessment/Plan - Problem List (1) Myositis Impression: Continuing to improve. Probability of surgical intervention is low. I will sign off. Thank you for including me in the care of this patient. Please have the patient follow up in my office within 1 week after discharge so that I can monitor his neck swelling and resolution. [facility] Call [phone] for an appointment Korey Dunn DDS [phone] Qualifiers: Myositis type: infective Myositis location: other site Qualified Code(s): M60.08 - Infective myositis, other site
[2020-09-23] MEDS: ACETAMINOPHEN 325 MG TABLET PO PRN (12:34)
[2020-09-23] MEDS: IBUPROFEN 600 MG TABLET PO SCH ×3 (13:46→23:58)
[2020-09-23] MEDS ORDERED: AMOX/CLAV 875 MG/125 MG TABLET PO SCH (14:00)
[2020-09-23] MEDS: SODIUM CHLORIDE FLUSH 0.9% 10 ML SYRINGE IVP PRN ×2 (14:12→23:58)
[2020-09-23] MEDS: SACCHAROMYCES BOULARDII 250 MG CAPSULE PO SCH (17:13)
--- NOTE | 2020-09-23 19:34 | PROVIDER PROGRESS NOTE ---
Subjective - Prog Note Date Prog Note Date: 09/23/20 - Subjective Subjective: He feels much improved. His neck swelling continues to improve. Reports no difficulty breathing or difficulty swallowing. He is looking forward to going home. Current Medications - Current Medications Current Medications: Active Medications Acetaminophen (Acetaminophen 325 Mg Tablet) 650 mg PO Q4HR PRN PRN Reason: Pain 1 to 4 Last Admin: 09/23/20 12:34 Dose: 650 mg Documented by: Clindamycin HCl (Clindamycin 150 Mg Capsule) 450 mg PO TID [facility] Ibuprofen (Ibuprofen 600 Mg Tablet) 600 mg PO Q6HR [facility] Last Admin: 09/23/20 17:13 Dose: 600 mg Documented by: Morphine Sulfate (Morphine 2 Mg/Ml Carpuject) 2 mg IVP Q2HR PRN PRN Reason: Pain 8 to 10 Nicotine (Nicotine 14 Mg Patch) 1 patch TOP 2200 [facility] Last Admin: 09/22/20 22:07 Dose: 1 patch Documented by: Ondansetron HCl (Ondansetron Odt 4 Mg Tablet) 4 mg TL Q6HR PRN PRN Reason: Nausea / Vomiting Oxycodone HCl (Oxycodone 5 Mg Tablet) 5 mg PO Q4HR PRN PRN Reason: Pain 5 to 7 Last Admin: 09/22/20 18:08 Dose: 5 mg Documented by: Saccharomyces Boulardii (Saccharomyces Boulardii 250 Mg Capsule) 250 mg PO BIDWM [facility] Last Admin: 09/23/20 17:13 Dose: 250 mg Documented by: Sodium Chloride (Sodium Chloride Flush 0.9% 10 Ml Syringe) 10 ml IVP PRN PRN PRN Reason: NEEDED PER PROVIDER ORDERS Last Admin: 09/23/20 14:12 Dose: 10 ml Documented by: Trimethoprim/Sulfamethoxazole (Sulfameth/Trimeth Ds 800/160 Mg Tablet) 1 tab PO BID [facility] No Known Home Medications 09/22/20 Objective - Vital Signs/Intake & Output Reviewed Vital Signs: Yes Vital Signs: Vital Signs x48h Temp Pulse Resp BP Pulse Ox 09/23/20 15:46 36.9 C 71 18 116/54 L 98 09/23/20 13:00 37.0 C 84 20 116/43 L 99 Intake & Output: Intake & Output 09/20/20 09/21/20 09/22/20 09/23/20 23:59 23:59 23:59 23:59 Intake Total 1600 4270 4450.00 Balance 1600 4270 4450.00 - Objective General Appearance: positive: No acute distress, Alert Eyes Bilateral: positive: Normal inspection, Conjunctivae nml Neck: positive: Nml inspection, Other (Swelling/edema left neck is significantly improved. It is still palpable and slightly tender on palpation of the left sternocleidomastoid. No erythema.) Respiratory: positive: No respiratory distress. negative: Wheezes, Rales Cardiovascular: positive: Regular rate & rhythm, No murmur. negative: Tachycardia Abdomen: positive: Non-tender, No distention. negative: Tenderness Skin: positive: Warm, Dry, Other (The multiple small abscess over his bilateral upper extremities are significantly improved. Only minimal erythema. No purulent drainage.) Extremities: positive: No pedal edema Neurologic/Psychiatric: positive: Oriented x3, Motor nml. negative: Disoriented to person, Disoriented to place - Lab Results Fish Bones: 09/22/20 08:50 09/22/20 08:50 ABX Reporting Has patient been on IV antibiotics over the past 48 hours?: Yes Sepsis Event Note (H) - Evaluation Current Stage of Sepsis: Resolved Possible source of Sepsis: positive: Skin/soft tissue - Sepsis Criteria Sepsis Criteria: Recorded Heart Rate greater than 90 bpm, WBC count greater than 12,000 or less than 4000 Assessment/Plan - Problem List (1) Myositis Impression: This is predominantly left neck and involving the sternocleidomastoid. This is significantly improved. His white count and CRP were elevated yesterday but improving. We were unable to obtain labs today but clinically he has been afebrile and no longer tachycardic. We will transition to oral clindamycin to cover for gram positives and anaerobes. If he continues to improve through the night then he can be discharged tomorrow and will follow up with oral surgery next week. Qualifiers: Myositis type: infective Myositis location: other site Qualified Code(s): M60.08 - Infective myositis, other site (2) Abscess of multiple sites Impression: Cultures grew strep and MRSA. This is sensitive to clindamycin and so we will place him on clindamycin today. (3) Methamphetamine abuse Impression: We once again discussed the importance of refraining from IV drug use. Social work has discussed the potential option for rehab and spoke with his bin piler. (4) Sepsis Impression: This is now resolved. This was secondary to the myositis of the left sternocleidomastoid.
[2020-09-23] MEDS ORDERED: SULFAMETH/TRIMETH DS 800/160 MG TABLET PO SCH (21:00)
[2020-09-23] MEDS: CLINDAMYCIN 150 MG CAPSULE PO SCH (21:11)
[2020-09-23] MEDS: NICOTINE 14 MG PATCH TOP SCH (21:11)
[2020-09-24] MEDS: IBUPROFEN 600 MG TABLET PO SCH (05:37)
[2020-09-24] MEDS: CLINDAMYCIN 150 MG CAPSULE PO SCH (05:37)
[2020-09-24 08:00] LABS: CALCIUM 8.8 mg/dL (8.5-10.3); CREATININE 0.8 mg/dL (0.6-1.2)
[2020-09-24 08:02] LABS: BASOPHILS # (AUTO) 0.1 10^3/uL (0.0-0.1); BASOPHILS % (AUTO) 0.5 %; EOSINOPHILS # (AUTO) 0.6 10^3/uL (0.0-0.7); EOSINOPHILS % (AUTO) 5.2 %; HCT - HEMATOCRIT 40.9 % (42.0-52.0); LYMPHOCYTES # (AUTO) 2.1 10^3/uL (1.5-3.5); LYMPHOCYTES % (AUTO) 18.7 %; MEAN CORPUSCULAR HEMOGLOBIN 29.7 pg (27.0-31.0); MEAN CORPUSCULAR HGB CONC 31.8 g/dL (32.0-36.0); MEAN CORPUSCULAR VOLUME 93.6 fL (80.0-94.0); MEAN PLATELET VOLUME 10.7 fL (7.4-11.4); MONOCYTES # (AUTO) 0.8 10^3/uL (0.0-1.0); MONOCYTES % (AUTO) 6.9 %; NEUTROPHILS # (AUTO) 7.4 10^3/uL (1.5-6.6); NEUTROPHILS % (AUTO) 67.8 %; PLT - PLATELET COUNT 380 10^3/uL (130-450); RED BLOOD COUNT 4.37 10^6/uL (4.70-6.10); RED CELL DISTRIBUTION WIDTH 12.3 % (12.0-15.0)
--- NOTE | 2020-09-24 08:35 | Discharge Plan ---
Discharge Plan Problem Reviewed?: Yes Disposition: Home, Self Care Condition: Stable Prescriptions: Clindamycin [Cleocin] 450 mg PO TID #12 cap Diet: Regular Activity Restrictions: Activity as Tolerated Shower Restrictions: No Driving Restrictions: No Health Concerns: You had already presented to the hospital emergency room with bilateral lateral arm abscesses that were treated with incision to drain infection. 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 Over the next 2 days, from the left arm, the swelling and redness had gone up the arm into your neck and shoulder area. You were unable to turn your neck because of the pain. The left neck was hard, swollen, hot. We found you to have a severe soft tissue infection. This is in context of a history of heroin and methamphetamine abuse which puts you at risk for MRSA. MRSA is methicillin-resistant staph aureus infection. They can be very difficult to treat. After evaluating you, we asked oral maxillofacial surgery to see you and Dr. Dunn did not think you had to go to the operating room. You promptly responded to antibiotics and the swelling went down quickly over the next 2 days. We transitioned you to antibiotics by mouth to cover the bacteria of not only staph, strep, but also the MRSA. You have done well with that and do not have a fever, redness of your neck, or elevated white cell count in your blood work. Plan of Treatment: Complete therapy with antibiotics. You will be sent home on clindamycin 3 times a day and finish all the pills. You should be done in 4 days. While you are on clindamycin take an [id number] probiotic to help with your bowel health. Dr. Dunn would like to see you in a week. He wants to make sure that all of the infection is gone from your neck. Care Goals: To complete therapy and achieve cure of the neck infection. You will also be meeting with nelsy to help you gain access to inpatient rehab for substance abuse. Hopefully you will be able to stay clean once you finish rehab. Assessment: Patient understands care goals and will follow through. No Smoking: If you smoke, Please STOP! Call for help. Follow-up with: Korey Dunn, [facility] [Provider Admit Priv/Credential] -
[2020-09-24 08:48] VITALS: BP 90/56
[2020-09-24] MEDS: SACCHAROMYCES BOULARDII 250 MG CAPSULE PO SCH (08:52)
--- NOTE | 2020-09-24 11:48 | DISCHARGE SUMMARY ---
"Discharge Summary Admit Date: 09/21/20 Discharge Date: 09/24/20 Discharging Provider: Hope Green MD Primary Care Provider: none Code Status: Attempt Resuscitation Condition at Discharge: Stable Discharge Disposition: 01 Home, Self Care - DIAGNOSES Discharge Diagnoses with Status of Each Condition: 1. Sepsis on admission, resolved 2. Soft tissue infection of neck with myositis 3. Abscess of multiple sites 4. MRSA positive 5. Methamphetamine and heroin abuse - HPI History of Present Illness: This is a 29-year-old male with a past medical history significant for intravenous drug use who presents today complaining of worsening left neck swelling. He was seen in the ER 2 days ago for abscess over both of his arms as well as some left neck swelling. The abscess in his arms were drained and he was prescribed Keflex. He states he did not take the antibiotics after discharge. He noted that after discharge, the swelling continued to progress in his left neck and so he was brought back to the emergency department today after he called an ambulance. He reports subjective fevers yesterday evening. He has difficulty swallowing and pain with swallowing. Reports a mild sore throat. He has difficulty opening his mouth due to pain in his left mandible. He denies injecting in his neck. He reports he only injects methamphetamine in both of his arms. His last use was yesterday. Denies injecting anywhere else including his lower extremities. He reports no chest pain or dyspnea. Denies nausea, vomiting, abdominal pain. He reports feeling quite thirsty at the moment as he has not had anything to eat or drink for over a day. He states that he is homeless. He denies any prior episodes of neck swelling. Reports no shoulder pain. He underwent a CT of the neck in the emergency department which was concerning for soft tissue cellulitis/myositis of the sternocleidomastoid. He was seen by Dr. Dunn of oral surgery who agreed with admission for IV antibiotics and he will continue to follow the patient. The patient unfortunate difficult stick and labs were unable to be obtained in the emergency department but he did receive 3 L of normal saline as well as vancomycin and Zosyn. Given the above findings, medicine was consulted for admission. - Past Medical History Cardiovascular: reports: None Respiratory: reports: None Neuro: reports: None Endocrine/Autoimmune: reports: None GI: reports: None : reports: None HEENT: reports: None Psych: reports: Bipolar disorder Musculoskeletal: reports: Chronic back pain Derm: reports: None MRSA Hx?: No - Past Surgical History HEENT: reports: Tonsil/Adenoidectomy - CONSULTS | PROCEDURES Consultations: BELINDA Beatty Procedures: CT soft tissue neck with extensive left neck soft tissue and muscle inflammation concerning for infectious cellulitis and myositis. Multiple bilateral enlarged neck lymph nodes that are reactive. No abscess. 2. Blood cultures, 2 sets, negative after 2 days - HOSPITAL COURSE Hospital Course: Under the consultative services of oral maxillofacial surgery, we admitted the patient for myositis, cellulitis, soft tissue infection of the neck. His sepsis criteria resolved slowly over the course of 24 hours with antibiotic therapy. There was rapid improvement by the second day of the swelling and redness in the left neck and he was able to turn his head much more normally. White cell count was 16.4 thousand on admission and was 11,000 by the time of discharge. The day before discharge he was changed to clindamycin oral. There is no recurrence of fever and white cell count continued to drop and as such he sent home in stable condition with clindamycin 3 times daily. The oral maxillofacial surgeon would like to see him in the next week. He is contacting [employer] services. He is hoping to enter into an inpatient rehab program for his heroin and methamphe tamine abuse. At this time he was homeless but when he leaves with us today he will be staying with his mom. Exam at discharge shows a temperature of 37. Heart rate 77. Blood pressure 90- 106 systolic. Respirations 18 and is 98% on room air. The redness and heat of the left neck and submandibular area are completely resolved. However there is still firmness and induration underneath the mandible former there is resolving myositis. There is no redness or swelling in the supraclavicular fossa, skin of the shoulder, or down the arm. The bilateral abscesses from 2 days prior to admission are closed and are healing. Those abscesses were in the forearms. Lungs are clear to auscultation and percussion. He has a regular rate and rhythm with no tachycardia. Skin is warm and dry. He is ambulating in his room, eating 100% of his food and feels pretty good. Greater than 30 minutes was spent coordinating discharge. This document was made in part using voice recognition software. While efforts are made to proofread this document, sound alike and grammatical errors may occur. - ALLERGIES Allergies/Adverse Reactions: Allergies Allergy/AdvReac Type Severity Reaction Status Date / Time nickel Allergy Rash Verified 09/21/20 16:49 zinc Allergy Rash Verified 09/21/20 16:49 - MEDICATIONS Home Medications: Ambulatory Orders Medication Instructions Recorded Confirmed Acetaminophen [Tylenol] 650 mg PO Q4HR PRN tablet 09/24/20 Clindamycin [Cleocin] 450 mg PO TID #12 cap 09/24/20 Ibuprofen [Motrin] 600 mg PO Q6HR tablet 09/24/20 - LABS Result Diagrams: 09/24/20 07:33 09/24/20 07:33 - SEPSIS Current Stage of Sepsis: Resolved Possible source of Sepsis: Skin/soft tissue Sepsis Criteria: Recorded Heart Rate greater than 90 bpm, WBC count greater than 12,000 or less than 4000"
--- OUTSIDE RECORDS SUMMARY | 2020-09-27 01:19 | EXTERNAL MEDICAL SUMMARY RPT | Continuity of Care Document ---
:1990 Demographics Phone Unavailable Preferred Language Unknown Marital Status Unknown Temple Affiliation Unknown Race Unknown Ethnic Group Unknown Author Organization [facility] Address [address] [place] [address] Phone Social History date description facility [phone]
== END 2020-09-24 09:45 | disposition home or self-care (01) | DRG 872 ==
LOC: EDSEX → EDUNIT# → ED 16:43 → MS2 19:57
PROVIDERS: ADMIT Internal Medicine; ATTEND Specialist
DX: A41.02 Sepsis due to Methicillin resistant Staphylococcus aureus (principal); L03.221 Cellulitis of neck; M60.08 Infective myositis, other site; L02.414 Cutaneous abscess of left upper limb; L02.413 Cutaneous abscess of right upper limb; R59.0 Localized enlarged lymph nodes; F11.10 Opioid abuse, uncomplicated; F15.10 Other stimulant abuse, uncomplicated; Z59.0 Homelessness; T36.96XA Underdosing of unspecified systemic antibiotic, initial encounter; Z91.128 Patient's intentional underdosing of medication regimen for other reason; F17.210 Nicotine dependence, cigarettes, uncomplicated
CPT/HCPCS: 0202U; 36415; 70491; 80048; 80053; 83605; 83690; 85025; 86140; 87040; 87640; 93306; 96365; 96375; 99284; 99285; 99406; A9270; J3370; J7120; Q9967; 80202